=== PATIENT | female | born 1935 | race Caucasian/White ===

== ENCOUNTER → 2024-02-29 | Outpatient (CLI) | payer MEDICARE, SELFPAY ==
--- NOTE | 2024-02-29 09:55 | RAD_ITS ---
INDICATION: Cough EXAMINATION/TECHNIQUE: X-RAY - XR Chest 2 Views COMPARISON: None. FINDINGS: Hyperinflated lungs. Tortuous and calcified thoracic aorta. The heart is mildly enlarged. No pleural effusion or pneumothorax. Degenerative changes of the thoracic spine and shoulders. Multiple age-indeterminate compression deformities of the thoracic spine. RAD/Chest PA and Lateral IMPRESSION: COPD. Multiple age-indeterminate compression deformities of the thoracic spine. Electronically Signed: Anthony Abad MD at 23:39 EDT ,
[2024-02-29 10:22] LABS: Absolute Lymphocyte Count 1.34 X10^3/uL (0.83-4.51); Absolute Neutrophil Count 2.4 X10^3/uL (2.0-7.7); Basophil# 0.03 X10^3/uL; Basophil% 0.7 % (0-1); Eosinophil# 0.15 X10^3/uL; Eosinophils% 3.3 % (0-5); Hematocrit 41.4 % (37-47); Hemoglobin 13.3 g/dL (12.0-15.0); Lymphocyte # 1.34 X10^3/ul (0.83-4.51); Lymphocyte % 29.9 % (19-41); Mean Corp Hgb Conc 32.1 g/dL (32-36); Mean Corpuscular Volume 108.9 fL (81-99); Mean Platelet Vol. 9.9 fl (6.2-12.0); Monocyte# 0.52 X10^3/uL; Monocyte% 11.6 % (0-10); NRBC Flagged by Analyzer 0 % (0-5); Neutrophil # 2.42 X10^3/uL (2.7-7.7); Neutrophil % 54.1 % (47-70); Platelet Count 204 K/mm3 (150-450); RBC Distribution Width CV 14.2 % (11.6-14.6); RBC Distribution Width SD 56.7 fl (35.1-43.9); White Blood Count 4.5 K/mm3 (4.4-11.0)
[2024-02-29 11:13] LABS: ALB/GLOB Ratio 1.1 RATIO (0.9-2.4); AST(SGOT) 17 U/L (15-37); Alanine Aminotransfer ALT/SGPT 16 U/L (13-56); Albumin, Serum 3.5 g/dL (3.2-5.0); Alkaline Phosphatase 68 U/L (45-117); Anion Gap 5 (5-15); BUN 21 mg/dL (7-18); BUN/Creat Ratio 35.6 RATIO (10-20); Calcium,Total 9.5 mg/dL (8.5-10.1); Chloride 109 mmol/L (98-107); Cholesterol 208 mg/dL (200); Creatinine, Serum 0.59 mg/dL (0.55-1.02); EST Glomerular Filtration Rate 102 mL/min (>60); Est Glom Filt Rate - Afr Amer 124 mL/min (>60); Globulin 3.3 g/dL (2.2-4.2); Glucose 97 mg/dL (74-106); High Density Lipoprotein 89 mg/dL; Potassium 3.7 mmol/L (3.5-5.1); Protein, Total 6.8 g/dL (6.4-8.2); Sodium Level 141 mmol/L (136-145); Thyroid Stim Hormone (TSH) 1.17 uIU/mL (0.358-3.74); Triglycerides 98 mg/dL; Very Low Density Lipoprotein 20 mg/dL (5-40)
[2024-02-29 17:20] LABS: Vitamin D,25 Hydroxy 48.6 ng/mL
== END | disposition home or self-care (01) ==
PROVIDERS: PCP Family Medicine; Referring Provider Family Medicine; Visit Provider Family Medicine
DX: R05.8 Other specified cough (principal); M85.80 Other specified disorders of bone density and structure, unspecified site
CPT/HCPCS: 36415; 71046; 80053; 80061; 82306; 84443; 85025

== ENCOUNTER → 2024-05-01 | Outpatient (CLI) | payer MEDICARE, SELFPAY ==
--- NOTE | 2024-05-01 10:35 | RAD_ITS ---
STUDY: X-RAY - RIGHT SHOULDER REASON FOR EXAM: Female, 88 years old. Fall TECHNIQUE: 4 view(s) of the shoulder. COMPARISON: None. FINDINGS: There is severe degenerative arthrosis of the glenohumeral articulation. There is degenerative arthrosis of the acromioclavicular joint without inferior osseous spur formation. Normal acromion. Deformity of the surgical neck of the proximal right humerus suggestive of possible old fracture. The soft tissue structures are unremarkable. Normal visualized pulmonary apex. RAD/Shoulder min 2 Views IMPRESSION: Degenerative changes. No acute fracture or dislocation is seen. Electronically Signed: Iglesia Lobo MD at 11:13 EDT ,
== END | disposition home or self-care (01) ==
PROVIDERS: PCP Family Medicine; Referring Provider Physician Assistant; Visit Provider Physician Assistant
DX: M25.511 Pain in right shoulder (principal); W19.XXXA Unspecified fall, initial encounter
CPT/HCPCS: 73030

== ENCOUNTER → 2024-05-23 | Outpatient (CLI) | payer MEDICARE, SELFPAY ==
--- NOTE | 2024-05-23 12:41 | BD_ITS ---
STUDY: DUAL ENERGY X-RAY ABSORPTIOMETRY / DXA REASON FOR EXAM: Female, 88 years old. [id number] TECHNIQUE: Bone Mineral Density (BMD) measurements of left forearm and bilateral hips were obtained. COMPARISON: None. FINDINGS: Left Femur Total: g/cm2 (0.442) / T-score (-4.1) / Z-score (-1.8) Left Femoral Neck: g/cm2 (0.447) / T-score (-3.6) / Z-score (-1.1) Right Femur Total: g/cm2 (0.372) / T-score (-4.7) / Z-score (-2.3) Right Femoral Neck: g/cm2 (0.356) / T-score (-4.4) / Z-score (-1.9) Left Forearm: g/cm2 (0.292) / T-score (-5.3) BD/Dexa Bone Density Study IMPRESSION: The patient is considered osteoporotic as outlined below according to World [place] Organization (WHO) criteria with a high fracture risk. Reference Information: The T-score is the number of standard deviations above or below the standard which is normal for young adults at their peak bone mineral density. The World Health Organization (WHO) interprets the T-scores as follows: Above -1 Normal bone density Between -1 and -2.5 Osteopenia Equal to / or below -2.5 Osteoporosis As a practical clinical guideline, osteopenia may be graded as follows: Mild -1 through -1.5 Moderate -1.6 through -2.0 Severe -2.1 through -2.4 The Z-score is the number of standard deviations above or below age-matched controls. A Z-score of less than -1.5 would be considered abnormal. References: 1. NIH Osteoporosis and Related Bone Diseases www osteo.org 2. International Society for Clinical Densitometry www iscd.org 3. National Osteoporosis Foundation www nof.org Electronically Signed: Iglesia Lobo MD at 8:22 EDT ,
== END | disposition home or self-care (01) ==
LOC: OPBD 12:37
PROVIDERS: PCP Family Medicine; Referring Provider Family Medicine; Visit Provider Family Medicine
DX: Z78.0 Asymptomatic menopausal state (principal)
CPT/HCPCS: 77080

== ENCOUNTER → 2024-08-28 | Outpatient (CLI) | payer MEDICARE, SELFPAY ==
[2024-08-28 15:28] LABS: Absolute Lymphocyte Count 1.12 X10^3/uL (0.83-4.51); Absolute Neutrophil Count 2.9 X10^3/uL (2.0-7.7); Basophil# 0.03 X10^3/uL; Basophil% 0.6 % (0-1); Eosinophil# 0.14 X10^3/uL; Eosinophils% 2.8 % (0-5); Hematocrit 43.2 % (37-47); Hemoglobin 13.5 g/dL (12.0-15.0); Lymphocyte # 1.12 X10^3/ul (0.83-4.51); Lymphocyte % 22.6 % (19-41); Mean Corp Hgb Conc 31.3 g/dL (32-36); Mean Corpuscular Hgb 36.1 pg (27.0-32.0); Mean Corpuscular Volume 115.5 fL (81-99); Mean Platelet Vol. 9.9 fl (6.2-12.0); Monocyte# 0.75 X10^3/uL; Monocyte% 15.2 % (0-10); NRBC Flagged by Analyzer 0 % (0-5); Neutrophil # 2.89 X10^3/uL (2.7-7.7); Neutrophil % 58.4 % (47-70); POSITIVE MORPHOLOGY YES; Platelet Count 269 K/mm3 (150-450); RBC Distribution Width CV 15.5 % (11.6-14.6); RBC Distribution Width SD 65.9 fl (35.1-43.9); Red Blood Count 3.74 M/mm3 (4.2-5.4)
[2024-08-28 15:50] LABS: Vitamin D,25 Hydroxy 31.8 ng/mL
[2024-08-28 15:54] LABS: Differential Indicated SCAN CRITERIA MET
[2024-08-28 16:05] LABS: ALB/GLOB Ratio 1.2 RATIO (0.9-2.4); AST(SGOT) 20 U/L (15-37); Alanine Aminotransfer ALT/SGPT 17 U/L (13-56); Albumin, Serum 3.6 g/dL (3.2-5.0); Alkaline Phosphatase 100 U/L (45-117); Anion Gap 4 (5-15); BUN 24 mg/dL (7-18); BUN/Creat Ratio 39.3 RATIO (10-20); Calcium,Total 9.2 mg/dL (8.5-10.1); Chloride 112 mmol/L (98-107); Creatinine, Serum 0.61 mg/dL (0.55-1.02); EST Glomerular Filtration Rate 98 mL/min (>60); Est Glom Filt Rate - Afr Amer 119 mL/min (>60); Glucose 111 mg/dL (74-106); Potassium 3.3 mmol/L (3.5-5.1); Protein, Total 6.6 g/dL (6.4-8.2); Sodium Level 145 mmol/L (136-145)
[2024-08-28 16:51] LABS: Anisocytosis 1+
== END | disposition home or self-care (01) ==
LOC: MFPLAB 11:38
PROVIDERS: PCP Family Medicine; Visit Provider Family Medicine
DX: I10 Essential (primary) hypertension (principal); R41.89 Other symptoms and signs involving cognitive functions and awareness
CPT/HCPCS: 36415; 80053; 82306; 84443; 85025

== ENCOUNTER → 2024-09-21 | Outpatient (CLI) | payer MEDICARE, SELFPAY ==
--- NOTE | 2024-09-21 13:47 | VDLE_ITS ---
Reason For Study: Swelling LLE RIGHT LEFT CFV is compressible, spontaneous, phasic, GSV is normal. competent and demonstrates normal CFV is compressible, spontaneous, phasic, augmentation. competent, and demonstrates normal Procedure augmentation. This is a venous duplex using B-mode, color FV is compressible, spontaneous, phasic, flow and spectral Doppler. competent and demonstrates normal Exam performed in department. augmentation. Difficult to visualize Lt calf veins due to POP V is compressible, spontaneous, phasic, swelling. competent and demonstrates normal A preliminary report was called and/or faxed augmentation. to Dr. Hernandez. T/P Trunk is compressible. PTV is compressible. LT PerV is compressible. VL/Venous Duplex US, Unilateral Interpretation Summary Deep veins of the left lower extremity are patent and compressible segmentally. There is no evidence of left lower extremity deep vein thrombosis. Valvular competence appears intac t within the proximal deep venous system on the left . The left great saphenous vein appears patent a nd compressible segmentally. The right common femoral vein is patent and compressible . Ordering Physician: Kalia Hernandez Referring Physician: Kalia Hernandez Performed By: Katy Gonzales, ONELCS, RVT
== END | disposition home or self-care (01) ==
LOC: CVS 13:43
PROVIDERS: PCP Family Medicine; Referring Provider Family Medicine; Visit Provider Family Medicine
DX: R60.0 Localized edema (principal)
CPT/HCPCS: 93971

== ENCOUNTER 2024-10-10 11:14 | Emergency (ER) | payer MEDICARE, SELFPAY ==
[2024-10-10 11:15] VITALS: BP 163/89; PULSE 84; RESP 14; TEMP 36.6; O2SAT 98
[2024-10-10 11:45] VITALS: BMI 26.9
[2024-10-10 12:01] VITALS: O2SAT 96
--- NOTE | 2024-10-10 12:01 | EKG12_ITS ---
Test Reason : Blood Pressure : */* mmHG Vent. Rate : 77 BPM Atrial Rate : 77 BPM P-R Int : 160 ms QRS Dur : 84 ms QT Int : 394 ms P-R-T Axes : -23 58 0 degrees QTcB Int : 445 ms Normal sinus rhythm Normal ECG Confirmed by Lazaro Cuevas ([id number]), editor publications ADEEL WU ([id number]) on 10/11/2024 10:19:29 AM Referred By: BEATRIZ Confirmed By: Lazaro Cuevas
--- NOTE | 2024-10-10 12:02 | ED.VIS.CHEST ---
HPI History of Present Illness Chief Complaint: Chest Other Informant: patient and family (Daughter at bedside.) Onset/Context/Timing Onset: Days and Month(s) Activity at onset: gradual Timing: Continuous Quality: Positive for Aching Location: Right Chest and Left Chest Current Severity: Mild Maximum Severity: Mild Worsened By: Movement of Torso Associated Symptoms: Negative for Nausea, Vomiting, Diaphoresis, Dyspnea, Cough, Fever, Lightheadedness, Acid Reflux or Palpitations Narrative Narrative: 88-year-old female history of anemia, hypertension, scoliosis and sciatica. Patient has 2 separate issues going on. She was slipping out of her bed on the second grab the railing to put herself up and since that time has had bilateral rib cage pain. She never actually fell out of bed or hit the floor. Also the patient had bilateral lower extremity edema for at least 2 months. She has an upcoming scheduled echocardiogram and other testing. She was on Lasix 20 and then 40 mg once a day without any relief. She has now stopped his medications. Her daughter is present at bedside helps with the history because the patient is very hard of hearing. Patient denies shortness of breath. She denies fever or cough. She denies any recent illness. Prior Similar Symptoms: Yes Recent Illness/Hospitalization: No CVD Risk Factors: Positive for Hypertension PE Risk Factors: Negative for Recent Travel/Surgery, Recent Immobilization, Prior DVT or PE, Cancer or OCP + Smoking + >/=35 TAD Risk Factors: Negative for Marfan's Syndrome, Hypertension or Family History PFSH PFS Medical History Contusion of right shoulder Right shoulder strain Anemia Stomach ulcer Hypertension Home Medications ?Medication ?Instructions ?Recorded ?Last Taken ?Type amlodipine 5 mg tablet 5 mg PO QDAY 05/01/24 Unknown History Allergy/AdvReac Type Severity Reaction Status Date / Time Penicillins Allergy Intermediate PT UNSURE Verified 10/10/24 11:15 OF REACTION Family History Grandmother Breast cancer Mother Cancer bone Surgical History Hx of tonsillectomy H/O shoulder replacement H/O: hysterectomy Social History adopted: No household members: family Smoking Status: Never smoker ROS ROS ED ROS Narrative Denies recent illness. Bilateral lower extremity swelling for months. Constitutional Constitutional ED: Denies chills Eyes Eyes: Reports none ENT ENT ED: Denies ear pain, rhinorrhea or sore throat Cardiovascular Cardiovascular: Reports chest pain and other Details: Bilateral rib cage pain after trying to pull herself up in bed by the railings. Respiratory/Chest Respiratory/Chest: Denies cough or dyspnea Gastrointestinal Gastrointestinal: Denies abdominal pain, constipation, diarrhea, melena, nausea or vomiting Genitourinary Genitourinary ED: Denies dysuria or hematuria Musculoskeletal Musculoskeletal: Denies arthralgias Integumentary Denies abscess Neurologic Neurologic: Denies headache(s) Psychiatric Psychiatric: Denies anxiety Endocrine Endocrinology: Denies cold intolerance Hematologic/Lymphatic Hematologic/Lymphatic: Denies easy bleeding Allergic/Immunologic Allergic/Immunologic ED: Denies mouth swelling EXAM Physical Exam Narrative Exam Narrative: 88-year-old female vital signs are stable afebrile. Pulse ox 98% on room air no signs of hypoxia. She does not look septic or toxic. She is in no distress. She is very hard of hearing. Daughter is present in the room. H EENT exam pupils round react light. Moist mucous members. Neck nontender no JVD. No lymphadenopathy. Lungs clear to auscultation bilaterally. Heart regular rhythm rate about 80 no murmur. She does have mild bilateral rib cage tenderness. There is no ecchymosis or bruising. No subcu air or crepitance. No bony deformity. Abdomen is soft and nontender. No peritoneal signs. Pelvic girdle intact. Moving all 4 extremities. She has 1-2+ pitting edema both lower extremities. Equal symmetrical. Calves are nontender. There is no cords. Previously had a noninvasive study that was negative for DVT. Const Vital Signs: 10/10/24 11:15 10/10/24 11:47 10/10/24 12:01 Temperature 98 F Temperature Source Temporal Pulse Rate 84 Respiratory Rate 14 Respiratory Effort Normal Non-Labored Blood Pressure 163/89 H Blood Pressure Mean 113 Pulse Ox 98 96 Oxygen Delivery Method Room Air Room Air 10/10/24 13:06 10/10/24 15:00 10/10/24 15:30 Temperature Temperature Source Pulse Rate 78 89 Respiratory Rate 17 17 Respiratory Effort Blood Pressure 156/86 H Blood Pressure Mean 109 Pulse Ox 97 86 Oxygen Delivery Method Room Air Room Air Positive well nourished and well developed; Negative for cachectic, contractures or unkempt General Appearance ED: well developed and NAD; Negative for unkempt, cachectic, contractures or pallor Nutritional Appearance: Negative for cachectic HEENT Reports moist mucous membranes normocephalic and atraumatic Eyes PERRL and EOMs intact bilaterally Neck no lymphadenopathy, supple and no JVD Chest Wall inspection of chest normal; Negative for palpation of chest normal Chest Narrative: Bilateral rib cage tenderness to palpation. No crepitance or subcu air. No bruising. No bony deformity. Chest: tenderness Resp normal respiratory effort Auscultation: Negative for rales, rhonchi or wheezes Cardio regular rate, regular rhythm, S1 normal heart sound, S2 normal heart sound and no murmurs Peripheral Pulses: pulses 2+ throughout GI normal to inspection, nondistended, normoactive bowel sounds, soft to palpation, non-tender, non-distended and no masses Back/Spine no CVA tenderness and no thoracic nor lumbar tenderness Extremity Negative for normal to inspection Extremity Narrative: Bilateral 1-2+ pitting edema. Equal symmetrical. General Extremety ED: Yes edema General Extremity: edema Neuro oriented x3 and CN's II-XII intact bilaterally Neuro Narrative: Very hard of hearing. Sensorium / Orientation: awake, alert, oriented to person and oriented to place Motor Exam: strength 5/5 throughout Psych mental status grossly normal Appearance: Negative for unkempt Mood & Affect: Negative for depressed, anxious or tearful Skin no rashes or lesions noted and no wounds General Skin Exam: Negative for jaundice or pallor Rashes: No rashes noted Trauma: Negative for abrasion, laceration or puncture MDM MDM MDM Narrative Medical decision making narrative: 88-year-old female has 2-month plus history of lower extremity edema that is unresponsive to Lasix. Second issue is she injured her rib cage bilaterally while pulling herself up to bed. Cardiac workup due to the edema and chest pain thinks reproducible musculoskeletal. Chest x-ray to evaluate for possible rib fracture. Repeat exam patient is resting comfortably at 4:13 PM. Exam unchanged. We went over her test results. Nurses walked the patient in the hallway without any oxygen. Her pulse ox saturations stayed 91 to 92% or higher. She and her daughter are comfortable with her being discharged home. I called the echocardiogram lab was unable to get hold anybody. Daughter will try tomorrow to see if they can move the echocardiogram up. History & Record Review Discussion w/independent historian: Patient and Family Additional record(s) reviewed:: Prior inpatient record, Prior outpatient record, Prior ED visit and Prior labs Lab Data Attestation: I reviewed the patient's lab results. Lab results narrative: CBC unremarkable. White count of 4. H&H 12.9 and 39. Platelets 163. Electrolytes show potassium 3.4. Gap 6. Normal BUN of 20 creatinine 0.56. Glucose 108. Troponin 14. BNP 218. Labs: Laboratory Results - last 24 hr 10/10/24 12:09 WBC 4.3 L RBC 3.60 L Hgb 12.9 Hct 39.6 MCV 110.0 H MCH 35.8 H MCHC 32.6 RDW Std Deviation 57.1 H RDW Coeff of Hawa 13.8 Plt Count 163 MPV 9.6 Immature Gran % (Auto) 0.500 Neut % (Auto) 50.8 Lymph % (Auto) 22.8 Greer % (Auto) 16.5 H Eos % (Auto) 8.7 H Baso % (Auto) 0.7 Absolute Neuts (auto) 2.2 Absolute Lymphs (auto) 0.97 Nucleated RBC % 0 Sodium 142 Potassium 3.4 L Chloride 107 Carbon Dioxide 29.0 Anion Gap 6 BUN 20 H Creatinine 0.56 Estim Creat Clear Calc 45.31 Est GFR (MDRD) Af Amer 131 Est GFR (MDRD) Non-Af 109 BUN/Creatinine Ratio 35.8 H Glucose 108 H Calcium 9.6 Troponin I High Sens 14 B-Natriuretic Peptide 218.3 H Radiography Chest X-Ray - ED: 2 View, Read by ED Physician, Normal, Heart, Lungs, Mediastinum, Bony Structures, No Acute Disease and Chronic Changes Diagnostic Testing: Clinical Impression(s) from Imaging Studies Chest X-Ray 10/10/24 12:25 IMPRESSION: Findings suggestive of a mild degree of vascular congestion and CHF. Electronically Signed: Iglesia Lobo MD at 12:36 EST , Chest x-ray, 2 views, interpreted by myself and the radiologist shows mild vascular congestion. No effusion. No pneumonia. Normal cardiac silhouette. Chronic changes. Rhythm Strip Rhythm Strip: Sinus Rhythm Rate: 77 Ectopy: None EKG Initial EKG: Attestation: I personally reviewed and interpreted this EKG as follows: Interpretation: No Acute Injury Pattern Comments: Normal sinus rhythm rate of 77 no acute signs of CO or ischemia. Discharge Plan Triage Chief Complaint: Chest Other ED Provider: Mike Davison Dx/Rx/DC Orders Clinical Impression: Congestive heart failure, Peripheral edema Instructions: ED Heart Failure, Congestive (CHF) Prescriptions: No Action amlodipine 5 mg tablet 5 mg PO QDAY Primary Care Provider: Kalia Hernandez Referrals: Kalia Hernandez MD [Primary Care Provider] - Activity Restrictions/Additional Instructions: Continue your Lasix daily. Call and follow-up to get your echocardiogram the ultrasound your heart see if there is any way they can move it up to be done sooner than the . Return if feeling worse or if feeling significantly short of breath. Your test today looked good as did your chest x-ray but we need that echocardiogram to be done for additional information. Print Language: Greek Disposition Disposition: Home, Self Care
--- NOTE | 2024-10-10 12:25 | RAD_ITS ---
STUDY: X-RAY CHEST REASON FOR EXAM: Female, 88 years old. Chest pain. TECHNIQUE: AP and lateral views of the chest. COMPARISON: Comparison is made with prior study dated February 29, 2024. FINDINGS: EKG electrodes are seen. Hyperinflation. Blunting of both costophrenic angles posteriorly. Mild degree of vascular congestion. There is mild cardiac enlargement. Normal mediastinum and bay. Normal visualized pulmonary arteries. There is atherosclerotic calcification of the aortic arch with tortuosity. There is demineralization of the osseous structures. There is degenerative osteoarthritis of the bilateral shoulders. Hiatal hernia. RAD/Chest PA and Lateral IMPRESSION: Findings suggestive of a mild degree of vascular congestion and CHF. Electronically Signed: Iglesia Lobo MD at 12:36 EST ,
[2024-10-10 12:36] LABS: Absolute Lymphocyte Count 0.97 X10^3/uL (0.83-4.51); Absolute Neutrophil Count 2.2 X10^3/uL (2.0-7.7); Basophil# 0.03 X10^3/uL; Basophil% 0.7 % (0-1); Eosinophil# 0.37 X10^3/uL; Eosinophils% 8.7 % (0-5); Hematocrit 39.6 % (37-47); Hemoglobin 12.9 g/dL (12.0-15.0); Lymphocyte # 0.97 X10^3/ul (0.83-4.51); Lymphocyte % 22.8 % (19-41); Mean Corp Hgb Conc 32.6 g/dL (32-36); Mean Corpuscular Hgb 35.8 pg (27.0-32.0); Mean Platelet Vol. 9.6 fl (6.2-12.0); Monocyte% 16.5 % (0-10); NRBC Flagged by Analyzer 0 % (0-5); Neutrophil # 2.16 X10^3/uL (2.7-7.7); Neutrophil % 50.8 % (47-70); Platelet Count 163 K/mm3 (150-450); RBC Distribution Width CV 13.8 % (11.6-14.6); RBC Distribution Width SD 57.1 fl (35.1-43.9); White Blood Count 4.3 K/mm3 (4.4-11.0)
[2024-10-10 12:49] LABS: Anion Gap 6 (5-15); BUN 20 mg/dL (7-18); BUN/Creat Ratio 35.8 RATIO (10-20); Calcium,Total 9.6 mg/dL (8.5-10.1); Chloride 107 mmol/L (98-107); Creatinine, Serum 0.56 mg/dL (0.55-1.02); EST Glomerular Filtration Rate 109 mL/min (>60); Est Glom Filt Rate - Afr Amer 131 mL/min (>60); Estimated Creatinine Clearance 45.31 ml/min; Glucose 108 mg/dL (74-106); Potassium 3.4 mmol/L (3.5-5.1); Sodium Level 142 mmol/L (136-145); Troponin-I HS 14 pg/mL (3.0-54.0)
[2024-10-10] MEDS: Morphine 4 MG/ML Syringe IV (13:02)
[2024-10-10] MEDS: Ondansetron 4 MG/2 ML Vial IV (13:02)
[2024-10-10 13:06] VITALS: BP 156/86; PULSE 78; RESP 17
[2024-10-10 14:31] LABS: BNP,B-Type NATRIURETIC PEPTIDE 218.3 pg/mL (0-100)
[2024-10-10 15:00] VITALS: PULSE 89; RESP 17; O2SAT 97
[2024-10-10 15:30] VITALS: O2SAT 86
[2024-10-10 16:40] VITALS: BP 145/78; PULSE 86; RESP 18; TEMP 36.4; O2SAT 92; O2SAT 93
== END 2024-10-10 17:06 | disposition home or self-care (01) ==
PROVIDERS: Emergency Provider Emergency Medicine; PCP Family Medicine; Visit Provider Emergency Medicine
DX: I11.0 Hypertensive heart disease with heart failure (principal); I50.9 Heart failure, unspecified; H91.90 Unspecified hearing loss, unspecified ear; R07.82 Intercostal pain
CPT/HCPCS: 71046; 80048; 83880; 84484; 85025; 93005; 96374; 96375; 99284; A4216; J2405

== ENCOUNTER → 2024-10-23 | Outpatient (CLI) | payer MEDICARE, SELFPAY ==
--- NOTE | 2024-10-23 12:29 | ECHOD_ITS ---
Reason For Study: Ankle Swelling Procedure This was a 2D Doppler, Color Flow transthoracic echocardiogram. Exam performed in department. Left Ventricle Normal LV size. Left ventricular systolic function is normal. Stage 1 diastolic dysfunction. The left ventricular ejection fraction is 65 %. No regional wall motion abnormalities noted. Right Ventricle Normal RV size. Normal systolic function. Atria Normal left atrium. Normal right atrium. Mitral Valve There is mild to moderate mitral annular calcification. Tricuspid Valve Normal tricuspid valve. Mild tricuspid valve insufficiency. Pulmonary artery systolic pressure is 30 mmHg. Aortic Valve Trisinus/trileaflet aortic valve. Pulmonic Valve Normal pulmonic valve. Great Vessels Normal aortic root. The pulmonary artery is normal size. Inferior vena cava collapse with respiration. Pericardium/Pleural No pericardial effusion. MMode/2D Measurements & Calculations LVIDd: 4.3 cm IVSd: 1.2 cm Ao root diam: 3.6 cm LVIDs: 2.7 cm LVPWd: 0.89 cm RVDd: 3.7 cm FS: 37.9 % LAV(MOD-bp): 74.5 ml LVAd ap4: 24.2 cm2 SV(MOD-sp4): 44.4 ml LAV(MOD-bp) Indexed: 44.0 ml/m2 LVLd ap4: 6.6 cm SI(MOD-sp4): 26.2 ml/m2 LAV(MOD-sp2): 60.7 ml EDV(MOD-sp4): 71.6 ml LAV(MOD-sp4): 75.8 ml EDV(sp4-el): 74.9 ml LVAs ap4: 13.6 cm2 LVLs ap4: 6.2 cm ESV(MOD-sp4): 27.3 ml ESV(sp4-el): 25.4 ml EF(MOD-sp4): 61.9 % EF(sp4-el): 66.2 % SV(sp4-el): 49.6 ml LA A4 area: 21.5 cm2 LA dimension(2D): 3.7 cm RA A4 area: 20.0 cm2 TAPSE: 1.9 cm Time Measurements MV dec time: 0.26 sec Doppler Measurements & Calculations MV E max waldo: 63.4 cm/sec Lat Peak E' Waldo: 10.3 cm/sec Med Peak E' Waldo: 3.2 cm/sec MV A max waldo: 91.1 cm/sec E/E' lat: 6.2 E/E' med: 19.8 MV E/A: 0.70 MV V2 max: 113.4 cm/sec MV P1/2t max waldo: 82.1 cm/sec Ao V2 max: 99.7 cm/sec MV max P.1 mmHg MV P1/2t: 80.1 msec Ao max P.0 mmHg MV V2 mean: 57.4 cm/sec MV mean P.6 mmHg MV dec slope: 300.3 cm/sec2 MV V2 VTI: 22.3 cm MVA(P1/2t): 2.7 cm2 LV V1 max: 84.1 cm/sec PA V2 max: 102.1 cm/sec TR max waldo: 344.0 cm/sec LV V1 max P.8 mmHg TR max P.8 mmHg LV V1 mean P.3 mmHg LV V1 mean: 51.9 cm/sec LV V1 VTI: 17.9 cm ECHO/Echo Complete Interpretation Summary Normal LV size. Left ventricular systolic function is normal. Stage 1 diastolic dysfunction. The left ventricular ejection fraction is 65 %. Pulmonary artery systolic pressure is 30 mmHg. Ordering Physician: Kalia Hernandez Referring Physician: Kalia Hernandez Performed By: Mehrdad Sandoval RCS
--- NOTE | 2024-10-23 12:31 | ART_ITS ---
Reason For Study: Weak Pulse BLE Procedure A bilateral lower extremity continuous wave Doppler with analog waveform analysis and ankle brachial indexes. Left Segmental Pressures Left brachial= 171mmHg. Left posterior tibial artery = 176mmHg. Left dorsalis pedis artery = 150mmHg. The left posterior tibial artery waveforms are triphasic. The left dorsalis pedis waveforms are triphasic. Right Segmental Pressures Right brachial= 165mmHg. Right posterior tibial artery = 187mmHg. Right dorsalis pedis artery = 142mmHg. The right posterior tibial artery waveforms are triphasic. The right dorsalis pedis waveforms are triphasic. Indices The right ankle brachial index by the posterior tibial artery is 1.09. The right ankle brachial index by the dorsalis pedis is 0.83. The left ankle brachial index by the posterior tibial artery is 1.03. The left ankle brachial index by the dorsalis pedis is 0.88. VL/Ankle Brachial Index Interpretation Summary Right DIPAK 1.09, normal. Doppler/PVR waveforms of the right ankle normal at rest . Left DIPAK 1.03, normal. Doppler/PVR waveforms of the left ankle normal at rest. Ordering Physician: Kalia Hernandez Referring Physician: KALIA HERNANDEZ MD Performed By: Rey Andrew RVT
== END | disposition home or self-care (01) ==
PROVIDERS: PCP Family Medicine; Referring Provider Family Medicine; Visit Provider Family Medicine
DX: M25.473 Effusion, unspecified ankle (principal); R60.0 Localized edema; R09.89 Other specified symptoms and signs involving the circulatory and respiratory systems
CPT/HCPCS: 93306; 93922

== ENCOUNTER → 2025-03-05 | Outpatient (CLI) | payer MEDICARE, SELFPAY ==
[2025-03-05 17:46] LABS: Absolute Lymphocyte Count 1.47 X10^3/uL (0.83-4.51); Absolute Neutrophil Count 2.6 X10^3/uL (2.0-7.7); Basophil# 0.04 X10^3/uL; Basophil% 0.8 % (0-1); Eosinophil# 0.19 X10^3/uL; Eosinophils% 3.8 % (0-5); Hematocrit 41.9 % (37-47); Hemoglobin 13.8 g/dL (12.0-15.0); Lymphocyte # 1.47 X10^3/ul (0.83-4.51); Lymphocyte % 29.6 % (19-41); Mean Corp Hgb Conc 32.9 g/dL (32-36); Mean Corpuscular Hgb 35.3 pg (27.0-32.0); Mean Corpuscular Volume 107.2 fL (81-99); Mean Platelet Vol. 10.2 fl (6.2-12.0); Monocyte# 0.62 X10^3/uL; Monocyte% 12.5 % (0-10); NRBC Flagged by Analyzer 0 % (0-5); Neutrophil # 2.62 X10^3/uL (2.7-7.7); Neutrophil % 52.9 % (47-70); Platelet Count 169 K/mm3 (150-450); RBC Distribution Width CV 14.6 % (11.6-14.6); RBC Distribution Width SD 57.6 fl (35.1-43.9); Red Blood Count 3.91 M/mm3 (4.2-5.4)
[2025-03-05 18:08] LABS: Vitamin D,25 Hydroxy 51.3 ng/mL (30-100)
[2025-03-05 18:21] LABS: ALB/GLOB Ratio 1.7 RATIO (0.9-2.4); AST(SGOT) 17 U/L (<=31); Alanine Aminotransfer ALT/SGPT 10 U/L (<=34); Albumin, Serum 4.1 g/dL (3.4-4.8); Alkaline Phosphatase 82 U/L (35-104); Anion Gap 11 (5-15); BUN 27 mg/dL (4-19); BUN/Creat Ratio 40.4 RATIO (10-20); Calcium,Total 9.7 mg/dL (7.6-11.0); Carbon Dioxide 25.7 mmol/L (21.0-32.0); Chloride 105 mmol/L (98-108); Creatinine, Serum 0.66 mg/dL (0.70-1.20); EST Glomerular Filtration Rate 84 (>60); Globulin 2.4 g/dL (2.2-4.2); Glucose 102 mg/dL (70-99); Potassium 3.9 mmol/L (3.3-5.1); Protein, Total 6.6 g/dL (5.9-8.4); Sodium Level 142 mmol/L (133-145); Total Bilirubin 0.42 mg/dL (0.00-1.30)
== END | disposition home or self-care (01) ==
LOC: MFPLAB 16:50
PROVIDERS: PCP Family Medicine; Referring Provider Family Medicine; Visit Provider Family Medicine
DX: R42 Dizziness and giddiness (principal)
CPT/HCPCS: 36415; 80053; 82306; 84443; 85025

== ENCOUNTER → 2025-06-11 | Outpatient (CLI) | payer MEDICARE, SELFPAY ==
--- OUTSIDE RECORDS SUMMARY | 2025-06-11 20:25 | XMS RPT_ITS | CCD ---
Author Organization [facility] Care Team Providers Care Validation Specialist Name Role Phone Fitz KHALIL, Kalia Primary Care Provider Fitz KHALIL, Kalia Attending Provider Fitz KHALIL, Kalia Referring Provider [phone] Molly KHALIL, Dr. Fierro Attending Provider [phone] Meseret KHALIL, Dr. Joseph Attending Provider [phone] Meseret, [place] Attending Unavailable Fitz, Chalon Primary Care Unavailable Meseret, Jake Referring Unavailable Meseret, [place] Attending Unavailable Fitz, Chalon Primary Care Unavailable Fitz, Chalon Attending Unavailable Fitz, Chalon Referring Unavailable Fitz, Chalon Primary Care Unavailable Fitz, Chalon Primary Care Unavailable Fitz, Chalon Attending Unavailable Fitz, Chalon Referring Unavailable Fitz, Chalon Primary Care Unavailable Fitz, Chalon Attending Unavailable Fitz, Chalon Referring Unavailable Fitz, Chalon Primary Care Unavailable Fitz, Chalon Attending Unavailable Fitz, Chalon Primary Care Unavailable Mike Davison Attending Unavailable Fitz, Chalon Primary Care Unavailable Yael Boo Attending Unavailable Fitz, Chalon Referring Unavailable Meseret, [place] Attending Unavailable Fitz, Chalon Referring Unavailable Fitz, Chalon Primary Care Unavailable Fitz, Chalon Primary Care Unavailable Binu Castellano Attending Unavailable Fitz, Chalon Referring Unavailable Fitz, Chalon Primary Care Unavailable Meseret, [place] Attending Unavailable Fitz, Chalon Primary Care Unavailable Yessy Rose Attending Unavailable Fitz, Chalon Referring Unavailable Allergies Allergy Classification Reported Allergen(s) Allergy Type Date of Onset Reaction(s) Facility (2 sources) Penicillins Allergy to substance 5 PT UNSURE OF REACTION [facility] (1 source) Penicillins Drug allergy (disorder) [facility] Repository Medications Current Medications Medication Drug Class(es) Dates Sig (Normalized) Sig (Original) amLODIPine 2.5 mg oral tablet (3 sources) Dihydropyridine Calcium Channel Jarod Start: 04-22-2025 take 1 tablet by mouth once daily Amlodipine 2.5 mg tablet Active 2.5 mg PO daily April 22, 2025 12:00am Start: 05-01-2024 End: 04-22-2025 take 1 tablet by mouth once daily Amlodipine 5 mg tablet Discontinued 5 mg PO daily May 01, 2024 12:00am April 22, 2025 9:35am Vibegron (Gemtesa) 75 mg tablet (1 source) Start: 04-22-2025 take 1 tablet by mouth once daily Vibegron (Gemtesa) 75 mg tablet Active 75 mg PO daily April 22, 2025 12:00am Completed/Discontinued Medications Medication Drug Class(es) Dates Sig (Normalized) Sig (Original) alendronic acid 70 mg oral tablet (1 source) Bisphosphonate Start: 04-22-2025 End: 05-08-2025 take 1 tablet by mouth every week Alendronate 70 mg tablet Discontinued 70 mg PO EVERY WEEK April 22, 2025 12:00am May 08, 2025 11:26am DULoxetine 20 mg delayed release oral capsule (1 source) Serotonin and Norepinephrine Reuptake Inhibitor Start: 04-22-2025 End: 05-08-2025 take 1 capsule by mouth once daily Duloxetine 20 mg capsule,delayed release(DR/EC) Discontinued 20 mg PO daily April 22, 2025 12:00am May 08, 2025 11:26am furosemide 20 mg oral tablet (1 source) Loop Diuretic Start: 04-22-2025 End: 05-08-2025 take 1 tablet by mouth once daily Furosemide (Lasix) 20 mg tablet Discontinued 20 mg PO daily April 22, 2025 12:00am May 08, 2025 11:26am omeprazole 10 mg delayed release oral capsule (1 source) Proton Pump Inhibitor Start: 04-22-2025 End: 05-08-2025 take 1 capsule by mouth once daily Omeprazole 10 mg capsule,delayed release(DR/EC) Discontinued 10 mg PO daily April 22, 2025 12:00am May 08, 2025 11:26am predniSONE 20 mg oral tablet (2 sources) Start: 05-01-2024 End: 10-10-2024 take 1 tablet by mouth twice daily Prednisone 20 mg tablet Discontinued 20 mg PO TWICE A DAY 10 May 01, 2024 12:00am October 10, 2024 12:43pm traMADol hydrochloride 50 mg oral tablet (2 sources) Opioid Agonist Start: 05-01-2024 End: 10-10-2024 take 1 tablet by mouth once daily as needed Tramadol 50 mg tablet Discontinued 50 mg PO daily as needed May 01, 2024 12:00am October 10, 2024 12:44pm Problems Active Problems Problem Classification Problem Date Documented Date Episodic/Chronic Conditions associated with dizziness or vertigo (3 sources) Dizziness; Translations: [Dizziness and giddiness] Onset: 04-22-2025 Episodic Congestive heart failure; nonhypertensive (2 sources) Congestive heart failure; Translations: [Heart failure, unspecified] 10-18-2024 Chronic Deficiency and other anemia (1 source) Anemia; Translations: [Anemia, unspecified] 04-22-2025 Episodic Esophageal disorders (1 source) Gastroesophageal reflux disease; Translations: [Gastro-esophageal reflux disease without esophagitis] 04-22-2025 Chronic Essential hypertension (2 sources) Hypertensive disorder; Translations: [Essential (primary) hypertension] Onset: 04-22-2025 Chronic Fluid and electrolyte disorders (1 source) Hypokalemia; Translations: [Hypokalemia] 04-22-2025 Episodic Intracranial injury (1 source) History of concussion injury of brain; Translations: [Personal history of traumatic brain injury] 04-22-2025 Episodic Mood disorders (1 source) Depressive disorder; Translations: [Depression] 04-22-2025 Chronic Nonspecific chest pain (1 source) Other chest pain; Translations: [Other chest pain] Onset: Episodic Osteoporosis (2 sources) Osteoporosis; Translations: [Age-related osteoporosis without current pathological fracture] 08-03-2024 Chronic Other acquired deformities (2 sources) Scoliosis deformity of spine; Translations: [Scoliosis, unspecified] 08-03-2024 Chronic Other circulatory disease (1 source) Orthostatic hypotension; Translations: [Orthostatic hypotension] 04-22-2025 Episodic Other hereditary and degenerative nervous system conditions (1 source) Restless legs; Translations: [Restless legs syndrome] 04-22-2025 Chronic Other nervous system disorders (1 source) Other symptoms and signs involving cognitive functions and awareness; Translations: [Cognitive change] 04-22-2025 Episodic Other screening for suspected conditions (not mental disorders or infectious disease) (2 sources) Electrocardiogram abnormal; Translations: [Abnormal electrocardiogram [ECG] [EKG]] Onset: 04-22-2025 Episodic Residual codes; unclassified (2 sources) Peripheral edema; Translations: [Localized edema] 10-18-2024 Episodic Residual codes; unclassified (1 source) Insomnia; Translations: [Insomnia, unspecified] 04-22-2025 Episodic Residual codes; unclassified (1 source) Edema; Translations: [Edema, unspecified] 04-22-2025 Episodic Spondylosis; intervertebral disc disorders; other back problems (4 sources) Lumbar radiculopathy; Translations: [Radiculopathy, lumbar region] 08-03-2024 Episodic Sprains and strains (2 sources) Shoulder strain; Translations: [Strain of unspecified muscle, fascia and tendon at shoulder and upper arm level, right arm, initial encounter] 05-01-2024 Episodic Superficial injury; contusion (2 sources) Contusion of right shoulder; Translations: [Contusion of right shoulder, initial encounter] 05-01-2024 Episodic Unclassified (1 source) Low back pain, unspecified; Translations: [Low back pain, unspecified] Onset: Past or Other Problems Problem Classification Problem Date Documented Da te Episodic/Chronic Other non-traumatic joint disorders (1 source) Effusion, unspecified ankle; Translations: [Effusion, unspecified ankle] Onset: 11-11-2024 Episodic Residual codes; unclassified (1 source) Localized edema; Translations: [Localized edema] Onset: 10-25-2024 Episodic Results Test Name Value Interpretation Reference Range Facility Cardiology Visit Reporton Cardiology Visit Report [facility] [address] [place] [address] OFFICE VISIT Date of Service: 05/08/25 MR#: [id number] Acct: [id number] Name: RADHA WARNER #: [id number] : 1935 Provider: Dr. Jake Carl MD Age/Sex: 89/F Location: [facility] Status: Signed HPI HPI History of Present Illness Details: Pleasant nearly 89-year-old lady with a history of hypertension who complains of dizziness and vertigo as well as hot flashes and has had some falls. She apparently saw you in the office and adjustments were made to her blood pressure medication. She had had an echocardiogram performed in October of this year which demonstrated ejection fraction of 65% with mild to moderate mitral and calcification. At that time she had presented to the emergency room when she had presented with lower extremity edema unresponsive to Lasix. She had been on amlodipine at that time. The dosage was reduced and it appears that this has improved. She unfortunately continues to have these dizzy spells but no carlos syncopal episodes. She was asked to see us for further evaluation and management. An EKG done in your office demonstrated sinus rhythm with a rate of 77 bpm and no acute changes. She continues to complain of these hot flashes which she says she has had for at least 3 months. Blood work that has been done has been unremarkable including a TSH of 1.17. On her visit today in the office her physical exam is unremarkable her electrocardiogram here demonstrates sinus rhythm with a rate of 68 bpm and poor R wave progression. Intake Vital Signs 10/10/24 11:15 05/08/25 11:14 Height 5 ft 3 in 5 ft 3 in Weight: 136 lb BMI 24.0 BP 152/83 H Blood Pressure Location Lt brachial Position Sitting Respiration 16 Pulse 66 Pulse Source Monitor Intake Visit Reasons: ABN EKG ([facility]) Communication Equipment Mechanic Required: No Accompanied by: Daughter Is patient in pain?: No Allergies Penicillins Allergy (Intermediate, Verified 05/08/25 11:26) PT UNSURE OF REACTION Medications ???Medication ???Instructions ???Recorded ???Confirmed ???Type amlodipine 2.5 mg tablet 2.5 mg PO QDAY 04/22/25 05/08/25 H istory vibegron 75 mg tablet (Gemtesa) 75 mg PO QDAY 04/22/25 05/08/25 Hi story Have you fallen in the past year?: Yes PFSH Medical History Hypokalemia Depression RLS (restless legs syndrome) Insomnia Orthostatic hypotension GERD (gastroesophageal reflux disease) Cognitive change Edema Hx of concussion Dizziness Abnormal EKG Osteoporosis Scoliosis Anemia Hypertension Surgical History Hx of tonsillectomy H/O shoulder replacement H/O: hysterectomy Family History Grandmother Breast cancer Mother Cancer bone Social History adopted: No household members: family Smoking Status: Never smoker alcohol intake: never substance use type: does not use ROS Const Const: Positive for frequent falls; Negative for fatigue, weakness, headache(s), daytime sleepiness or difficulty sleeping ENT ENT: Positive for dizziness; Negative for headache(s) or Nosebleed/epistaxis Cardio Chest Pain: Yes Frequency: other (comes and goes) Character: other (twinges) Location: other (left shoulder blade) Duration: brief Palpitations: Yes Edema: Bilateral (BLE trace at times ) Resp Respiratory: Negative for SOB with activity, SOB at rest, SOB orthopnea SOB lying down or Cough GI GI: Negative nausea, vomiting or heartburn Neuro Neuro: Positive for dizziness, frequent falls and vertigo; Negative for lightheadedness, near syncope, headache(s) or weakness Endo Endo: Negative for fatigue Cardiology Exam Const Appearance: cooperative, healthy appearing, no acute distress, well developed and well groomed Nutritional Appearance: average body habitus and well nourished Orientation: alert, awake and oriented x3 Head Head: normal to inspection, normocephalic and atraumatic Ears: hearing grossly normal bilaterally and external ears normal Nose: external nose normal, nares normal, nasal mucous membranes and turbinates normal, septum normal and no nasal discharge Face and Sinus: face symmetric Mouth: oral mucosae normal, tongue normal, oropharynx normal and moist mucous membranes Teeth and gingiva: dentition normal Throat: posterior oropharynx normal, tonsils normal and uvula midline Eyes General: appearance normal, both eyes and all related structures Eyelids: eyelids normal Conjunctivae: conjunctivae normal Pupils: PERRL, normal by confrontation and accommodation normal EOM: EOM intact bilater (more content not included)... Normal [facility] Absolute lymphocyte countOrd ered By: Kalia Fitz on 03-05-2025 Lymphocytes Auto (Unsp spec) [#/Vol] 1.47 10*3/uL 0.83-4.51 [facility] Absolute neutrophil countOrd ered By: [facility] on 03-05-2025 Neutrophils (Bld) [#/Vol] 2.6 10*3/uL 2.0-7.7 [facility] Anion gap in Serum or Plasma Ordered By: Kalia Byrnes on 03-05-2025 Anion gap [Moles/Vol] 11 mmol/L 5-15 [facility] Automated lymphocyte count a s percentage of total leukocytesOrdered By: Kalia Byrnes on 03-05-2025 Lymphocytes/100 WBC Auto (Unsp spec) 29.6 % 19-41 [facility] BUN/creatinine ratioOrdered By: Kalia Fitz on 03-05-2025 Urea nitrogen/Creatinine [Mass ratio] 40.4 mg/mg High 10-20 [facility] Basophil percentageOrdered B y: Kalia Byrnes on 03-05-2025 Basophils/100 WBC (Bld) 0.8 % 0-1 [facility] Bilirubin, totalOrdered By: Kalia Byrnes on 03-05-2025 Bilirubin [Mass/Vol] 0.42 mg/dL 0.00-1.30 [facility] CBC W/Diff, Automatedon Absolute Lymph 1.47 X10 3/uL Normal 0.83-4.51 [facility] Comment on above: Performed By: #### L 100.0100, L501.9520, L506.1001, L500.4050 #### [facility] [address] [place], [place], [id number] Absolute Neut 2.6 X10 3/uL Normal 2.0-7.7 [facility] Comment on above: Performed By: #### L 100.0100, L501.9520, L506.1001, L500.4050 #### [facility] [address] [place], [address] Basophils/100 WBC (Bld) 0.8 % Normal 0-1 [facility] Comment on above: Performed By: #### L 100.0100, L501.9520, L506.1001, L500.4050 #### [facility] [address] [place], [address] Eosinophils/100 WBC (Bld) 3.8 % Normal 0-5 [facility] Comment on above: Performed By: #### L 100.0100, L501.9520, L506.1001, L500.4050 #### [facility] [address] [place], [address] Erythrocyte distribution width (RBC) [Ratio] 14.6 % Normal 11.6-14.6 [facility] Comment on above: Performed By: #### L 100.0100, L501.9520, L506.1001, L500.4050 #### [facility] [address] [place], [address] Hematocrit (Bld) [Volume fraction] 41.9 % Normal 37-47 [facility] Comment on above: Performed By: #### L 100.0100, L501.9520, L506.1001, L500.4050 #### [facility] [address] [place], [address] Hemoglobin (Bld) [Mass/Vol] 13.8 g/dL Normal 12.0-15.0 [facility] Comment on above: Performed By: #### L 100.0100, L501.9520, L506.1001, L500.4050 #### [facility] [address] [place], [address] IG% 0.400 Normal 0.0-0.9 [facility] Comment on above: Result Comment: IG% - Immature Granulocytes (promyelocytes, myelocytes and metamyelocytes) > 1% indicates that a LEFT SHIFT is Present. Performed By: #### L 100.0100, L501.9520, L506.1001, L500.4050 #### [facility] [address] [place], [address] Lymphocytes/100 WBC (Bld) 29.6 % Normal 19-41 [facility] Comment on above: Performed By: #### L 100.0100, L501.9520, L506.1001, L500.4050 #### [facility] [address] [place], [address] MCH (RBC) [Entitic mass] 35.3 pg High 27.0-32.0 [facility] Comment on above: Performed By: #### L 100.0100, L501.9520, L506.1001, L500.4050 #### [facility] [address] [place], [address] MCHC (RBC) [Mass/Vol] 32.9 g/dL Normal 32-36 [facility] Comment on above: Performed By: #### L 100.0100, L501.9520, L506.1001, L500.4050 #### [facility] [address] [place], [address] MCV (RBC) [Entitic vol] 107.2 fL High 81-99 [facility] Comment on above: Performed By: #### L 100.0100, L501.9520, L506.1001, L500.4050 #### [facility] [address] [place], [address] Monocytes/100 WBC (Bld) 12.5 % High 0-10 [facility] Comment on above: Performed By: #### L 100.0100, L501.9520, L506.1001, L500.4050 #### [facility] [address] [place], [address] Neutrophils/100 WBC (Bld) 52.9 % Normal 47-70 [facility] Comment on above: Performed By: #### L 100.0100, L501.9520, L506.1001, L500.4050 #### [facility] [address] [place], [address] Nucleated RBC (Bld) [#/Vol] 0 10*3/uL Normal 0-5 [facility] Comment on above: Performed By: #### L 100.0100, L501.9520, L506.1001, L500.4050 #### [facility] [address] [place], [address] Platelet mean volume (Bld) [Entitic vol] 10.2 fL Normal 6.2-12.0 [facility] Comment on above: Performed By: #### L 100.0100, L501.9520, L506.1001, L500.4050 #### [facility] [address] [place], [address] Platelets (Bld) [#/Vol] 169 10*3/uL Normal 150-450 [facility] Comment on above: Performed By: #### L 100.0100, L501.9520, L506.1001, L500.4050 #### [facility] [address] [place], [address] RBC (Bld) [#/Vol] 3.91 10*6/uL Low 4.2-5.4 [facility] Comment on above: Performed By: #### L 100.0100, L501.9520, L506.1001, L500.4050 #### [facility] [address] [place], [address] RDW SD 57.6 fl High 35.1-43.9 [facility] Comment on above: Performed By: #### L 100.0100, L501.9520, L506.1001, L500.4050 #### [facility] [address] [place], [address] WBC (Bld) [#/Vol] 5.0 10*3/uL Normal 4.4-11.0 [facility] Comment on above: Performed By: #### L 100.0100, L501.9520, L506.1001, L500.4050 #### [facility] [address] [place], [address] Carbon dioxide, total [Moles /volume] in Central venous bloodOrdered By: Kalia Byrens on 03-05-2025 CO2 [Moles/Vol] 25.7 mmol/L 21.0-32.0 [facility] Chloride assayOrdered By: Venita Byrnes on 03-05-2025 Chloride [Moles/Vol] 105 mmol/L 98-108 [facility] Comprehensive Metabolic Prof ilon 03-05-2025 Albumin [Mass/Vol] 4.1 g/dL Normal 3.4-4.8 [facility] Comment on above: Performed By: #### L 100.0100, L501.9520, L506.1001, L500.4050 #### [facility] [address] [place], [address] Albumin/Globulin [Mass ratio] 1.7 {ratio} Normal 0.9-2.4 [facility] Comment on above: Performed By: #### L 100.0100, L501.9520, L506.1001, L500.4050 #### [facility] [address] [place], [address] ALK PHOS 82 U/L Normal 35-104 [facility] Comment on above: Performed By: #### L 100.0100, L501.9520, L506.1001, L500.4050 #### [facility] [address] [place], [address] ALT [Catalytic activity/Vol] 10 U/L Normal <=34 [facility] Comment on above: Performed By: #### L 100.0100, L501.9520, L506.1001, L500.4050 #### [facility] [address] [place], [address] AST [Catalytic activity/Vol] 17 U/L Normal <=31 [facility] Comment on above: Performed By: #### L 100.0100, L501.9520, L506.1001, L500.4050 #### [facility] [address] [place], [address] Bilirubin [Mass/Vol] 0.42 mg/dL Normal 0.00-1.30 [facility] Comment on above: Performed By: #### L 100.0100, L501.9520, L506.1001, L500.4050 #### [facility] [address] [place], [address] BUN/CRE 40.4 RATIO High 10-20 [facility] Comment on above: Performed By: #### L 100.0100, L501.9520, L506.1001, L500.4050 #### [facility] [address] [place], [address] Calcium [Mass/Vol] 9.7 mg/dL Normal 7.6-11.0 [facility] Comment on above: Performed By: #### L 100.0100, L501.9520, L506.1001, L500.4050 #### [facility] [address] [place], [address] Chloride [Moles/Vol] 105 mmol/L Normal 98-108 [facility] Comment on above: Performed By: #### L 100.0100, L501.9520, L506.1001, L500.4050 #### [facility] [address] [place], [address] CO2 [Moles/Vol] 25.7 mmol/L Normal 21.0-32.0 [facility] Comment on above: Performed By: #### L 100.0100, L501.9520, L506.1001, L500.4050 #### [facility] [address] [place], [address] Creatinine [Mass/Vol] 0.66 mg/dL Low 0.70-1.20 [facility] Comment on above: Performed By: #### L 100.0100, L501.9520, L506.1001, L500.4050 #### [facility] [address] [place], [address] GAP 11 Normal 5-15 [facility] Comment on above: Performed By: #### L 100.0100, L501.9520, L506.1001, L500.4050 #### [facility] [address] [place], [address] GFR/1.73 sq M.predicted among non-blacks MDRD (S/P/Bld) [Vol rate/Area] 84 mL/min/{1.73_m2} Normal >60 [facility] Comment on above: Result Comment: mL/m in/1.73m2 CKD-EPI Creatinine Equation (2020) Performed By: #### L 100.0100, L501.9520, L506.1001, L500.4050 #### [facility] [address] [place], [address] Globulin (S) [Mass/Vol] 2.4 g/dL Normal 2.2-4.2 [facility] Comment on above: Performed By: #### L 100.0100, L501.9520, L506.1001, L500.4050 #### [facility] [address] [place], [address] Glucose [Mass/Vol] 102 mg/dL High 70-99 [facility] Comment on above: Performed By: #### L 100.0100, L501.9520, L506.1001, L500.4050 #### [facility] [address] [place], [address] Potassium [Moles/Vol] 3.9 mmol/L Normal 3.3-5.1 [facility] Comment on above: Performed By: #### L 100.0100, L501.9520, L506.1001, L500.4050 #### [facility] [address] [place], [address] Sodium [Moles/Vol] 142 mmol/L Normal 133-145 [facility] Comment on above: Performed By: #### L 100.0100, L501.9520, L506.1001, L500.4050 #### [facility] [address] [place], [address] T PROT 6.6 g/dL Normal 5.9-8.4 [facility] Comment on above: Performed By: #### L 100.0100, L501.9520, L506.1001, L500.4050 #### [facility] [address] [place], [address] Urea nitrogen [Mass/Vol] 27 mg/dL High 4-19 [facility] Comment on above: Performed By: #### L 100.0100, L501.9520, L506.1001, L500.4050 #### [facility] [address] [place], [address] Eosinophil percentageOrdered By: Kalia Byrnes on 03-05-2025 Eosinophils/100 WBC (Bld) 3.8 % 0-5 [facility] Erythrocyte distribution wid th ratioOrdered By: Kalia Byrnes on 03-05-2025 Erythrocyte distribution width (RBC) [Ratio] 14.6 % 11.6-14.6 [facility] Erythrocyte distribution wid th standard deviationOrdered By: Kalia Byrnes on 03-05-2025 Erythrocyte distribution width (RBC) [Ratio] 57.6 fl High 35.1-43.9 [facility] Glomerular filtration rate ( GFR) estimation/1.73 sq m using serum, plasma, or whole bOrdered By: Kalia Byrnes on 03-05-2025 GFR/1.73 sq M.predicted among non-blacks MDRD (S/P/Bld) [Vol rate/Area] 84 mL/min/{1.73_m2} >60 [facility] Comment on above: mL/min/1.73m2 CKD-EP I Creatinine Equation (2020) Hematocrit Auto (Bld) [Volum e fraction]Ordered By: Kalia Byrnes on 03-05-2025 Hematocrit (Bld) [Volume fraction] 41.9 % 37-47 [facility] Hemoglobin measurementOrdere d By: Kalia Byrnes on 03-05-2025 Hemoglobin (Bld) [Mass/Vol] 13.8 g/dL 12.0-15.0 [facility] Immature granulocytes/100 WB C Auto (Bld)Ordered By: Kalia Byrnes on 03-05-2025 Immature granulocytes/100 WBC (Bld) 0.400 % 0.0-0.9 [facility] Comment on above: IG% - Immature Granu locytes (promyelocytes, myelocytes and metamyelocytes) > 1% indicates that a LEFT SHIFT is Present. Laboratory - Chemistry and C hemistry - challengeOrdered By: Kalia Byrnes on 03-05-2025 AST [Catalytic activity/Vol] 17 U/L <32 [facility] MCV (mean corpuscular volume ) determinationOrdered By: Kalia Byrnes on 03-05-2025 MCV (RBC) [Entitic vol] 107.2 fL High 81-99 [facility] Mean corpuscular hemoglobin (MCH) determinationOrdered By: Kalia Byrnes on 03-05-2025 MCH (RBC) [Entitic mass] 35.3 pg High 27.0-32.0 [facility] Mean corpuscular hemoglobin concentration (MCHC) determinationOrdered By: Kalia Byrnes on 03-05-2025 MCHC (RBC) [Mass/Vol] 32.9 g/dL 32-36 [facility] Mean platelet volume determi nationOrdered By: Kalia Byrnes on 03-05-2025 Platelet mean volume (Bld) [Entitic vol] 10.2 fL 6.2-12.0 [facility] Monocyte percentageOrdered B y: Kalia Byrnes on 03-05-2025 Monocytes/100 WBC (Bld) 12.5 % High 0-10 [facility] Neutrophil percentageOrdered By: Kalia Byrnes on 03-05-2025 Neutrophils/100 WBC (Bld) 52.9 % 47-70 [facility] Nucleated red blood cell per centageOrdered By: Kalia Byrnes on 03-05-2025 Nucleated RBC/100 WBC (Bld) [Ratio] 0 % 0-5 [facility] Platelet countOrdered By: Venita Byrnes on 03-05-2025 Platelets (Bld) [#/Vol] 169 10*3/uL 150-450 [facility] Potassium measurement (mass/ volume)Ordered By: Kalia Byrnes on 03-05-2025 Potassium (Unsp spec) [Mass/Vol] 3.9 mmol/L 3.3-5.1 [facility] RBC Auto (Bld) [#/Vol]Ordere d By: Kalia Byrnes on 03-05-2025 RBC (Bld) [#/Vol] 3.91 10*6/uL Low 4.2-5.4 [facility] Serum creatinine measurement (mass/volume)Ordered By: Kalia Byrnes on 03-05-2025 Creatinine [Mass/Vol] 0.66 mg/dL Low 0.70-1.20 [facility] Serum globulin measurementOr dered By: Kalia Byrnes on 03-05-2025 Globulin (S) [Mass/Vol] 2.4 g/dL 2.2-4.2 [facility] Serum glucose measurement (m ass/volume)Ordered By: Kalia Byrnes on 03-05-2025 Glucose [Mass/Vol] 102 mg/dL High 70-99 [facility] Serum or plasma alanine anderson otransferase (ALT) measurementOrdered By: Kalia Byrnes on 03-05-2025 ALT [Catalytic activity/Vol] 10 U/L <35 [facility] Serum or plasma albumin marlin urement (mass/volume)Ordered By: Kalia Byrnes on 03-05-2025 Albumin [Mass/Vol] 4.1 g/dL 3.4-4.8 [facility] Serum or plasma albumin/glob ulin mass ratioOrdered By: Kalia Byrnes on 03-05-2025 Albumin/Globulin [Mass ratio] 1.7 {ratio} 0.9-2.4 [facility] Serum or plasma alkaline quinton sphatase measurementOrdered By: Kalia Byrnes on 03-05-2025 ALP [Catalytic activity/Vol] 82 U/L 35-104 [facility] Serum or plasma calcium marlin urement (mass/volume)Ordered By: Kalia Byrnes on 03-05-2025 Calcium [Mass/Vol] 9.7 mg/dL 7.6-11.0 [facility] Serum or plasma urea nitroge n measurement (mass/volume)Ordered By: Kalia Byrnes on 03-05-2025 Urea nitrogen [Mass/Vol] 27 mg/dL High 4-19 [facility] Sodium levelOrdered By: Júnior Byrnes on 03-05-2025 Sodium [Moles/Vol] 142 mmol/L 133-145 [facility] TSH DL <= 0.005 mIU/L QnOrde red By: Kalia Byrnes on 03-05-2025 TSH Qn 1.840 uIU/mL 0.300-4.200 [facility] Thyroid Stim Hormone (TSH)on 03-05-2025 TSH 1.840 uIU/mL Normal 0.300-4.200 [facility] Comment on above: Performed By: #### L 100.0100, L501.9520, L506.1001, L500.4050 #### [facility] Laboratory [address] [place], [address] Total proteinOrdered By: Gris Byrnes on 03-05-2025 Protein [Mass/Vol] 6.6 g/dL 5.9-8.4 [facility] Vitamin D,25 Hydroxyon 03-05 Vitamin D 25-OH 51.3 ng/mL Normal 30-100 [facility] Comment on above: Result Comment: Maria T min D Status Deficiency: <20 ng/mL (50nmol/L) Insufficiency: 20-30 ng/mL (50-75 nmol/L) Sufficiency: 30-100 ng/mL (75-250 nmol/L) Toxicity: >100 ng/mL (>250 nmol/L) Performed By: #### L 100.0100, L501.9520, L506.1001, L500.4050 #### [facility] [address] [place], [address] White blood cell (WBC) count Ordered By: Kalia Byrnes on 03-05-2025 WBC (Bld) [#/Vol] 5.0 10*3/uL 4.4-11.0 [facility] Ankle Brachial Indexon 10-23 Ankle Brachial Index [facility] [address] [place] [address] Ankle Brachial Index 10/23/24 1345 MR#: [id number] Acct: [id number] Name: RADHA WARNER Rep #: [id number] : [id number] From: Binu Castellano MD Attending Dr: Dr. Kalia Byrnes MD Status: REG Jarrett ROQUE Ordering Dr: Kalia Byrnes MD Date: 10/23/24 Location: [facility] Sex: F C Admitted: Reason For Study: Weak Pulse BLE Procedure A bilateral lower extremity continuous wave Doppler with analog waveform analysis and ankle brachial indexes. Left Segmental Pressures Left brachial= 171mmHg. Left posterior tibial artery = 176mmHg. Left dorsalis pedis artery = 150mmHg. The left posterior tibial artery waveforms are triphasic. The left dorsalis pedis waveforms are triphasic. Right Segmental Pressures Right brachial= 165mmHg. Right posterior tibial artery = 187mmHg. Right dorsalis pedis artery = 142mmHg. The right posterior tibial artery waveforms are triphasic. The right dorsalis pedis waveforms are triphasic. Indices The right ankle brachial index by the posterior tibial artery is 1.09. The right ankle brachial index by the dorsalis pedis is 0.83. The left ankle brachial index by the posterior tibial artery is 1.03. The left ankle brachial index by the dorsalis pedis is 0.88. VL/Ankle Brachial Index Interpretation Summary Right DIPAK 1.09, normal. Doppler/PVR waveforms of the right ankle normal at rest. Left DIPAK 1.03, normal. Doppler/PVR waveforms of the left ankle normal at rest. Ordering Physician: Kalia Byrnes Referring Physician: KALIA BYRNES MD Performed By: Rey Andrew, T 10/23/24 1631 Date Binu Castellano MD CC: Dr. Kalia Byrnes MD Date Dictated: 10/23/24 1345 Date Transcribed: 10/23/24 1631 Parts Advisor: Signed Normal [facility] Echo Completeon 10-23-2024 Echo Complete [facility] [address] [place] [address] Echo Complete 10/23/24 1251 MR#: [id number] Acct: [id number] Name: RADHA WARNER Rep #: [id number] : [id number] From: Jake Carl MD Attending Dr: Dr. Kalia Byrnes MD Status: REG C Ordering Dr: Kalia Byrnes MD Date: 10/23/24 Location: [facility] Sex: F C Admitted: Reason For Study: Ankle Swelling Procedure This was a 2D Doppler, Color Flow transthoracic echocardiogram. Exam performed in department. Left Ventricle Normal LV size. Left ventricular systolic function is normal. Stage 1 diastolic dysfunction. The left ventricular ejection fraction is 65 %. No regional wall motion abnormalities noted. Right Ventricle Normal RV size. Normal systolic function. Atria Normal left atrium. Normal right atrium. Mitral Valve There is mild to moderate mitral annular calcification. Tricuspid Valve Normal tricuspid valve. Mild tricuspid valve insufficiency. Pulmonary artery systolic pressure is 30 mmHg. Aortic Valve Trisinus/trileaflet aortic valve. Pulmonic Valve Normal pulmonic valve. Great Vessels Normal aortic root. The pulmonary artery is normal size. Inferior vena cava collapse with respiration. Pericardium/Pleural No pericardial effusion. MMode/2D Measurements Calculations LVIDd: 4.3 cm IVSd: 1.2 cm Ao root diam: 3.6 cm LVIDs: 2.7 cm LVPWd: 0.89 cm RVDd: 3.7 cm FS: 37.9 % LAV(MOD-bp): 74.5 ml LVAd ap4: 24.2 cm2 SV(MOD-sp4): 44.4 ml LAV(MOD-bp) Indexed: 44.0 ml/m2 LVLd ap4: 6.6 cm SI(MOD-sp4): 26.2 ml/m2 LAV(MOD-sp2): 60.7 ml EDV(MOD-sp4): 71.6 ml LAV(MOD-sp4): 75.8 ml EDV(sp4-el): 74.9 ml LVAs ap4: 13.6 cm2 LVLs ap4: 6.2 cm ESV(MOD-sp4): 27.3 ml ESV(sp4-el): 25.4 ml EF(MOD-sp4): 61.9 % EF(sp4-el): 66.2 % SV(sp4-el): 49.6 ml LA A4 area: 21.5 cm2 LA dimension(2D): 3.7 cm RA A4 area: 20.0 cm2 TAPSE: 1.9 cm Time Measurements MV dec time: 0.26 sec Doppler Measurements Calculations MV E max waldo: 63.4 cm/sec Lat Peak E' Waldo: 10.3 cm/sec Med Peak E' Waldo: 3.2 cm/sec MV A max awldo: 91.1 cm/sec E/E' lat: 6.2 E/E' med: 19.8 MV E/A: 0.70 MV V2 max: 113.4 cm/sec MV P1/2t max waldo: 82.1 cm/sec Ao V2 max: 99.7 cm/sec MV max P.1 mmHg MV P1/2t: 80.1 msec Ao max P.0 mmHg MV V2 mean: 57.4 cm/sec MV mean P.6 mmHg MV dec slope: 300.3 cm/sec2 MV V2 VTI: 22.3 cm MVA(P1/2t): 2.7 cm2 LV V1 max: 84.1 cm/sec PA V2 max: 102.1 cm/sec TR max waldo: 344.0 cm/sec LV V1 max P.8 mmHg TR max P.8 mmHg LV V1 mean P.3 mmHg LV V1 mean: 51.9 cm/sec LV V1 VTI: 17.9 cm ECHO/Echo Complete Interpretation Summary Normal LV size. Left ventricular systolic function is normal. Stage 1 diastolic dysfunction. The left ventricular ejection fraction is 65 %. Pulmonary artery systolic pressure is 30 mmHg. Ordering Physician: Kalia Byrnes Referring Physician: Kalia Byrnes Performed By: Mehrdad Sandoval RCS 10/23/24 1426 Date Jake Carl MD CC: Dr. Kalia Byrnes MD Date Dictated: 10/23/24 1251 Date Transcribed: 10/23/24 142 Parts Advisor: Signed Normal [facility] 12 Lead EKGon 10-10-[address] [facility] Cardiovascular Services [address] [place] [address] 12 Lead EKG 10/10/24 1211 MR#: [id number] Acct: [id number] Name: RADHA WARNER Rep #: [id number] : [id number] From: Lazaro Cuevas MD Attending Dr: Status: DEP Ordering Dr: Mike Davison MD Date: 10/10/24 Location: ED Sex: F C Admitted: Test Reason : Blood Pressure : */* mmHG Vent. Rate : 77 BPM Atrial Rate : 77 BPM P-R Int : 160 ms QRS Dur : 84 ms QT Int : 394 ms P-R-T Axes : -23 58 0 degrees QTcB Int : 445 ms Normal sinus rhythm Normal ECG Confirmed by Lazaro Cuevas ([id number]), editor managing director ADEEL WU ([id number]) on 10/11/2024 10:19:29 AM Referred By: BEATRIZ Confirmed By: Lazaro Cuevas 10/11/24 1019 Date Lazaro Cuevas MD CC: Dr. Kalia Byrnes MD; Dr. Mike Davison MD Signed Normal [facility] BNP,B-Type NATRIURETIC PEPTI Jacqueline 10-10-2024 Natriuretic peptide B (Bld) [Mass/Vol] 218.3 pg/mL High 0-100 [facility] Comment on above: Performed By: #### L 503.6620, L100.0100, L500.2500, L501.4020 ####[facility] [address] [place], [address] Basic Metabolic Profile (BMP )on 10-10-2024 BUN/CRE 35.8 RATIO High 10-20 [facility] Comment on above: Order Comment: 'TROP ' Serial specimen #1, #2 or #3: 1 Performed By: #### L 503.6620, L100.0100, L500.2500, L501.4020 ####[facility] [address] [place], [address] CA,Total 9.6 mg/dL Normal 8.5-10.1 [facility] Comment on above: Order Comment: 'TROP ' Serial specimen #1, #2 or #3: 1 Performed By: #### L 503.6620, L100.0100, L500.2500, L501.4020 ####[facility] [address] [place], [address] Chloride [Moles/Vol] 107 mmol/L Normal 98-107 [facility] Comment on above: Order Comment: 'TROP ' Serial specimen #1, #2 or #3: 1 Performed By: #### L 503.6620, L100.0100, L500.2500, L501.4020 ####[facility] [address] [place], [address] CO2 [Moles/Vol] 29.0 mmol/L Normal 21.0-32.0 [facility] Comment on above: Order Comment: 'TROP ' Serial specimen #1, #2 or #3: 1 Performed By: #### L 503.6620, L100.0100, L500.2500, L501.4020 ####[facility] [address] [place], [address] Creatinine [Mass/Vol] 0.56 mg/dL Normal 0.55-1.02 [facility] Comment on above: Order Comment: 'TROP ' Serial specimen #1, #2 or #3: 1 Result Comment: The validity of the calculated GFR GFRAA in patients over 70 years has not been determined. Clinical correlation is essential. Performed By: #### L 503.6620, L100.0100, L500.2500, L501.4020 ####[facility] [address] [place], [address] ECRCL 45.31 ml/min Normal [facility] Comment on above: Order Comment: 'TROP ' Serial specimen #1, #2 or #3: 1 Performed By: #### L 503.6620, L100.0100, L500.2500, L501.4020 ####[facility] [address] [place], [address] EST GFR - AA 131 mL/min Normal >60 [facility] Comment on above: Order Comment: 'TROP ' Serial specimen #1, #2 or #3: 1 Result Comment: Afri can Estonian GFR Calc Performed By: #### L 503.6620, L100.0100, L500.2500, L501.4020 ####[facility] [address] [place], [address] GAP 6 Normal 5-15 [facility] Comment on above: Order Comment: 'TROP ' Serial specimen #1, #2 or #3: 1 Performed By: #### L 503.6620, L100.0100, L500.2500, L501.4020 ####[facility] [address] [place], [address] GFR/1.73 sq M.predicted among non-blacks MDRD (S/P/Bld) [Vol rate/Area] 109 mL/min/{1.73_m2} Normal >60 [facility] Comment on above: Order Comment: 'TROP ' Serial specimen #1, #2 or #3: 1 Result Comment: Non- GFR Calc Performed By: #### L 503.6620, L100.0100, L500.2500, L501.4020 ####[facility] [address] [place], [address] Glucose [Mass/Vol] 108 mg/dL High 74-106 [facility] Comment on above: Order Comment: 'TROP ' Serial specimen #1, #2 or #3: 1 Result Comment: Fast ing Glucose result from 100 to 125 mg/dL suggests IMPAIRED HOMEOSTASIS per A.D.A. criteria. Performed By: #### L 503.6620, L100.0100, L500.2500, L501.4020 ####[facility] [address] [place], [address] Potassium [Moles/Vol] 3.4 mmol/L Low 3.5-5.1 [facility] Comment on above: Order Comment: 'TROP ' Serial specimen #1, #2 or #3: 1 Performed By: #### L 503.6620, L100.0100, L500.2500, L501.4020 ####[facility] [address] [place], [address] Sodium [Moles/Vol] 142 mmol/L Normal 136-145 [facility] Comment on above: Order Comment: 'TROP ' Serial specimen #1, #2 or #3: 1 Performed By: #### L 503.6620, L100.0100, L500.2500, L501.4020 ####[facility] [address] [place], [address] Urea nitrogen [Mass/Vol] 20 mg/dL High 7-18 [facility] Comment on above: Order Comment: 'TROP ' Serial specimen #1, #2 or #3: 1 Performed By: #### L 503.6620, L100.0100, L500.2500, L501.4020 ####[facility] [address] [place], [address] CBC W/Diff, Automatedon 01-0 8-202 Absolute Lymph 0.97 X10 3/uL Normal 0.83-4.51 [facility] Comment on above: Performed By: #### L 503.6620, L100.0100, L500.2500, L501.4020 ####[facility] [address] [place], [address] Absolute Neut 2.2 X10 3/uL Normal 2.0-7.7 [facility] Comment on above: Performed By: #### L 503.6620, L100.0100, L500.2500, L501.4020 ####[facility] [address] [place], [address] Basophils/100 WBC (Bld) 0.7 % Normal 0-1 [facility] Comment on above: Performed By: #### L 503.6620, L100.0100, L500.2500, L501.4020 ####[facility] [address] [place], [address] Eosinophils/100 WBC (Bld) 8.7 % High 0-5 [facility] Comment on above: Performed By: #### L 503.6620, L100.0100, L500.2500, L501.4020 ####[facility] [address] [place], [address] Erythrocyte distribution width (RBC) [Ratio] 13.8 % Normal 11.6-14.6 [facility] Comment on above: Performed By: #### L 503.6620, L100.0100, L500.2500, L501.4020 ####[facility] [address] [place], [address] Hematocrit (Bld) [Volume fraction] 39.6 % Normal 37-47 [facility] Comment on above: Performed By: #### L 503.6620, L100.0100, L500.2500, L501.4020 ####[facility] [address] [place], [address] Hemoglobin (Bld) [Mass/Vol] 12.9 g/dL Normal 12.0-15.0 [facility] Comment on above: Performed By: #### L 503.6620, L100.0100, L500.2500, L501.4020 ####[facility] [address] [place], [address] IG% 0.500 Normal 0.0-0.9 [facility] Comment on above: Result Comment: IG% - Immature Granulocytes (promyelocytes, myelocytes and metamyelocytes) > 1% indicates that a LEFT SHIFT is Present. Performed By: #### L 503.6620, L100.0100, L500.2500, L501.4020 ####[facility] [address] [place], [address] Lymphocytes/100 WBC (Bld) 22.8 % Normal 19-41 [facility] Comment on above: Performed By: #### L 503.6620, L100.0100, L500.2500, L501.4020 ####[facility] [address] [place], [address] MCH (RBC) [Entitic mass] 35.8 pg High 27.0-32.0 [facility] Comment on above: Performed By: #### L 503.6620, L100.0100, L500.2500, L501.4020 ####[facility] [address] [place], [address] MCHC (RBC) [Mass/Vol] 32.6 g/dL Normal 32-36 [facility] Comment on above: Performed By: #### L 503.6620, L100.0100, L500.2500, L501.4020 ####[facility] [address] [place], [address] MCV (RBC) [Entitic vol] 110.0 fL High 81-99 [facility] Comment on above: Performed By: #### L 503.6620, L100.0100, L500.2500, L501.4020 ####[facility] [address] [place], [address] Monocytes/100 WBC (Bld) 16.5 % High 0-10 [facility] Comment on above: Performed By: #### L 503.6620, L100.0100, L500.2500, L501.4020 ####[facility] [address] [place], [address] Neutrophils/100 WBC (Bld) 50.8 % Normal 47-70 [facility] Comment on above: Performed By: #### L 503.6620, L100.0100, L500.2500, L501.4020 ####[facility] [address] [place], [address] Nucleated RBC (Bld) [#/Vol] 0 10*3/uL Normal 0-5 [facility] Comment on above: Performed By: #### L 503.6620, L100.0100, L500.2500, L501.4020 ####[facility] [address] [place], [address] Platelet mean volume (Bld) [Entitic vol] 9.6 fL Normal 6.2-12.0 [facility] Comment on above: Performed By: #### L 503.6620, L100.0100, L500.2500, L501.4020 ####[facility] [address] [place], [address] Platelets (Bld) [#/Vol] 163 10*3/uL Normal 150-450 [facility] Comment on above: Performed By: #### L 503.6620, L100.0100, L500.2500, L501.4020 ####[facility] [address] [place], [address] RBC (Bld) [#/Vol] 3.60 10*6/uL Low 4.2-5.4 [facility] Comment on above: Performed By: #### L 503.6620, L100.0100, L500.2500, L501.4020 ####[facility] [address] [place], [address] RDW SD 57.1 fl High 35.1-43.9 [facility] Comment on above: Performed By: #### L 503.6620, L100.0100, L500.2500, L501.4020 ####[facility] [address] [place], [address] WBC (Bld) [#/Vol] 4.3 10*3/uL Low 4.4-11.0 [facility] Comment on above: Performed By: #### L 503.6620, L100.0100, L500.2500, L501.4020 ####[facility] [address] [place], [address] Chest PA and Lateralon 10-10 Chest PA and Lateral [facility] Imaging Services [address] [place] [address] Chest PA and Lateral MR#: [id number] Acct: [id number] Name: RADHA WARNER Rep #: [id number] : 1935 F 88 From: Iglesia sue MD PCP: Dr. Kalia Byrnes MD Status: REG ER Study: Chest PA and Lateral Date of Exam: 10/10/24 Exam# [id number] Ordering Dr: Mike Davison MD [id number] STUDY: X-RAY CHEST REASON FOR EXAM: Female, 88 years old. Chest pain. TECHNIQUE: AP and lateral views of the chest. COMPARISON: Comparison is made with prior study dated February 29, 2024. FINDINGS: EKG electrodes are seen. Hyperinflation. Blunting of both costophrenic angles posteriorly. Mild degree of vascular congestion. There is mild cardiac enlargement. Normal mediastinum and bay. Normal visualized pulmonary arteries. There is atherosclerotic calcification of the aortic arch with tortuosity. There is demineralization of the osseous structures. There is degenerative osteoarthritis of the bilateral shoulders. Hiatal hernia. RAD/Chest PA and Lateral IMPRESSION: Findings suggestive of a mild degree of vascular congestion and CHF. Electronically Signed: Iglesia Lobo MD at 12:36 EST , CC: Dr. Kalia Byrnes MD; Dr. Mike Davison MD Parts Advisor: Signed Normal [facility] Emergency Department Summary on 10-10-2024 Emergency Department Summary [facility] Medical Records Department [address] [place] [address] Emergency Department Summary 10/10/24 MR#: [id number] Acct: [id number] Name: RADHA WARNER Rep #: [id number] : 1935 88 From: Mike Davison MD PCP: Dr. Kalia Byrnes MD Status:REG ER Location: ED HPI History of Present Illness Chief Complaint: Chest Other Informant: patient and family (Daughter at bedside.) Onset/Context/Timing Onset: Days and Month(s) Activity at onset: gradual Timing: Continuous Quality: Positive for Aching Location: Right Chest and Left Chest Current Severity: Mild Maximum Severity: Mild Worsened By: Movement of Torso Associated Symptoms: Negative for Nausea, Vomiting, Diaphoresis, Dyspnea, Cough, Fever, Lightheadedness, Acid Reflux or Palpitations Narrative Narrative: 88-year-old female history of anemia, hypertension, scoliosis and sciatica. Patient has 2 separate issues going on. She was slipping out of her bed on the second grab the railing to put herself up and since that time has had bilateral rib cage pain. She never actually fell out of bed or hit the floor. Also the patient had bilateral lower extremity edema for at least 2 months. She has an upcoming scheduled echocardiogram and other testing. She was on Lasix 20 and then 40 mg once a day without any relief. She has now stopped his medications. Her daughter is present at bedside helps with the history because the patient is very hard of hearing. Patient denies shortness of breath. She denies fever or cough. She denies any recent illness. Prior Similar Symptoms: Yes Recent Illness/Hospitalizati on: No CVD Risk Factors: Positive for Hypertension PE Risk Factors: Negative for Recent Travel/Surgery, Recent Immobilization, Prior DVT or PE, Cancer or OCP + Smoking + >/=35 TAD Risk Factors: Negative for Marfan's Syndrome, Hypertension or Family History PFSH PFSH Medical History Contusion of right shoulder Right shoulder strain Anemia Stomach ulcer Hypertension Home Medications ???Medication ???Instructions ???Recorded ???Last Taken ???Type amlodipine 5 mg tablet 5 mg PO QDAY 05/01/24 Unknown History Allergy/AdvReac Type Severity Reaction Status Date / Time Penicillins Allergy Intermediate PT UNSURE Verified 10/10/24 11:15 OF REACTION Family History Grandmother Breast cancer Mother Cancer bone Surgical History Hx of tonsillectomy H/O shoulder replacement H/O: hysterectomy Social History adopted: No household members: family Smoking Status: Never smoker ROS ROS ED ROS Narrative Denies recent illness. Bilateral lower extremity swelling for months. Constitutional Constitutional ED: Denies chills Eyes Eyes: Reports none ENT ENT ED: Denies ear pain, rhinorrhea or sore throat Cardiovascular Cardiovascular: Reports chest pain and other Details: Bilateral rib cage pain after trying to pull herself up in bed by the railings. Respiratory/Chest Respiratory/Chest: Denies cough or dyspnea Gastrointestinal Gastrointestinal: Denies abdominal pain, constipation, diarrhea, melena, nausea or vomiting Genitourinary Genitourinary ED: Denies dysuria or hematuria Musculoskeletal Musculoskeletal: Denies arthralgias Integumentary Denies abscess Neurologic Neurologic: Denies headache(s) Psychiatric Psychiatric: Denies anxiety Endocrine Endocrinology: Denies cold intolerance Hematologic/Lymphatic Hematologic/Lymphatic : Denies easy bleeding Allergic/Immunologic Allergic/Immunologic ED: Denies mouth swelling EXAM Physical Exam Narrative Exam Narrative: 88-year-old female vital signs are stable afebrile. Pulse ox 98% on room air no signs of hypoxia. She does not look septic or toxic. She is in no distress. She is very hard of hearing. Daughter is present in the room. H EENT exam pupils round react light. Moist mucous members. Neck nontender no JVD. No lymphadenopathy. Lungs clear to auscultation bilaterally. Heart regular rhythm rate about 80 no murmur. She does have mild bilateral rib cage tenderness. There is no ecchymosis or bruising. No subcu air or crepitance. No bony deformity. Abdomen is soft and nontender. No peritoneal signs. Pelvic girdle intact. Moving all 4 extremities. She has 1-2+ pitting edema both lower extremities. Equal symmetrical. Calves are nontender. There is no cords. Previously had a noninvasive study that was negative for DVT. Const Vital Signs: 10/10/24 11:15 10/10/24 11:47 10/10/24 12:01 Temperature 98 F Temperature Source Temporal Pulse Rate 84 Respiratory Rate 14 Respiratory Effort Nor (more content not included)... Normal [facility] L501.4020on 10-10-2024 TROPONIN-I HS 14 pg/mL Normal 3.0-54.0 [facility] Comment on above: Order Comment: 'TROP ' Serial specimen #1, #2 or #3: 1 Result Comment: Plea se Note: New Test Units and Gender Specific Reference Ranges. For more information see Policy Stat Procedure [place] High Sensitivity Troponin (TNIH) and attachments. Performed By: #### L 503.6620, L100.0100, L500.2500, L501.4020 ####[facility] [address] [place], [address] Venous Duplex US, Unilateral on 09-21-2024 Venous Duplex US, Unilateral [facility] [address] [place] [address] Venous Duplex US, Unilateral 09/21/24 1353 MR#: [id number] Acct: [id number] Name: RADHA WARNER Rep #: [id number] : 1935 88 From: Don Tinajero MD Attending Dr: Dr. Kalia Byrnes MD Status: ALYSE ROQUE Ordering Dr: Kalia Byrnes MD Date: 09/21/24 Location: CVS Sex: F C Admitted: Reason For Study: Swelling LLE RIGHT LEFT CFV is compressible, spontaneous, phasic, GSV is normal. competent and demonstrates normal CFV is compressible, spontaneous, phasic, augmentation. competent, and demonstrates normal Procedure augmentation. This is a venous duplex using B-mode, color FV is compressible, spontaneous, phasic, flow and spectral Doppler. competent and demonstrates normal Exam performed in department. augmentation. Difficult to visualize Lt calf veins due to POP V is compressible, spontaneous, phasic, swelling. competent and demonstrates normal A preliminary report was called and/or faxed augmentation. to Dr. Byrnes. T/P Trunk is compressible. PTV is compressible. LT PerV is compressible. VL/Venous Duplex US, Unilateral Interpretation Summary Deep veins of the left lower extremity are patent and compressible segmentally. There is no evidence of left lower extremity deep vein thrombosis. Valvular competence appears intact within the proximal deep venous system on the left . The left great saphenous vein appears patent and compressible segmentally. The right common femoral vein is patent and compressible . Ordering Physician: Kalia Byrnes Referring Physician: Kalia Byrnes Performed By: Katy Gonzales, LISSETH, RVT 09/21/241951 Date Don Tinajero MD CC: Dr. Kalia Byrnes MD Date Dictated: 09/21/24 1353 Date Transcribed: 09/21/241951 Parts Advisor: Signed Normal [facility] CBC W/Diff, Automatedon 08-04 Anisocytosis Ql (Bld) 1+ Normal [facility] Comment on above: Order Comment: Order Date: 08/24/24 Order Info: 0184-1 - CBCD Performed By: #### L 506.1000, L100.0100, L500.4050, L501.9520 #### [facility] [address] [place], [place], [address] Comprehensive Metabolic Prof ilon 08-28-2024 Albumin [Mass/Vol] 3.6 g/dL Normal 3.2-5.0 [facility] Comment on above: Order Comment: Order Date: 08/24/24Order Info: 0786-1 - CMPOrder Info: 3016-3 - TSH Performed By: #### L 506.1000, L100.0100, L500.4050, L501.9520 ####[facility] [address] [place], [address] Albumin/Globulin [Mass ratio] 1.2 {ratio} Normal 0.9-2.4 [facility] Comment on above: Order Comment: Order Date: 08/24/24Order Info: 0786-1 - CMPOrder Info: 3016-3 - TSH Performed By: #### L 506.1000, L100.0100, L500.4050, L501.9520 ####[facility] [address] [place], [address] ALK P 100 U/L Normal 45-117 [facility] Comment on above: Order Comment: Order Date: 08/24/24Order Info: 785-10 - CMPOrder Info: 3015-3 - TSH Performed By: #### L 506.1000, L100.0100, L500.4050, L501.9520 ####[facility] [address] [place], [address] ALT [Catalytic activity/Vol] 17 U/L Normal 13-56 [facility] Comment on above: Order Comment: Order Date: 08/24/24Order Info: 07 - CMPOrder Info: 3015-3 - TSH Performed By: #### L 506.1000, L100.0100, L500.4050, L501.9520 ####[facility] [address] [place], [address] AST [Catalytic activity/Vol] 20 U/L Normal 15-37 [facility] Comment on above: Order Comment: Order Date: 08/24/24Order Info: 07 - CMPOrder Info: 3015-3 - TSH Performed By: #### L 506.1000, L100.0100, L500.4050, L501.9520 ####[facility] [address] [place], [address] Bilirubin [Mass/Vol] 0.60 mg/dL Normal 0.20-1.00 [facility] Comment on above: Order Comment: Order Date: 08/24/24Order Info: 07-1 - CMPOrder Info: 3016-3 - TSH Result Comment: For patients on eltrombopag therapy, use of Dimension [place] TBIL is not recommended. Performed By: #### L 506.1000, L100.0100, L500.4050, L501.9520 ####[facility] [address] [place], [address] BUN/CRE 39.3 RATIO High 10-20 [facility] Comment on above: Order Comment: Order Date: 08/24/24Order Info: 07-1 - CMPOrder Info: 3016-3 - TSH Performed By: #### L 506.1000, L100.0100, L500.4050, L501.9520 ####[facility] [address] [place], [address] CA,Total 9.2 mg/dL Normal 8.5-10.1 [facility] Comment on above: Order Comment: Order Date: 08/24/24Order Info: 0786-1 - CMPOrder Info: 3016-3 - TSH Performed By: #### L 506.1000, L100.0100, L500.4050, L501.9520 ####[facility] [address] [place], [address] Chloride [Moles/Vol] 112 mmol/L High 98-107 [facility] Comment on above: Order Comment: Order Date: 08/24/24Order Info: 0786-1 - CMPOrder Info: 3016-3 - TSH Performed By: #### L 506.1000, L100.0100, L500.4050, L501.9520 ####[facility] [address] [place], [address] CO2 [Moles/Vol] 29.0 mmol/L Normal 21.0-32.0 [facility] Comment on above: Order Comment: Order Date: 08/24/24Order Info: 0786-1 - CMPOrder Info: 3016-3 - TSH Performed By: #### L 506.1000, L100.0100, L500.4050, L501.9520 ####[facility] [address] [place], [address] Creatinine [Mass/Vol] 0.61 mg/dL Normal 0.55-1.02 [facility] Comment on above: Order Comment: Order Date: 08/24/24Order Info: 0786-1 - CMPOrder Info: 3 - TSH Result Comment: The validity of the calculated GFR GFRAA in patients over 70 years has not been determined. Clinical correlation is essential. Performed By: #### L 506.1000, L100.0100, L500.4050, L501.9520 ####[facility] [address] [place], [address] EST GFR - AA 119 mL/min Normal >60 [facility] Comment on above: Order Comment: Order Date: 08/24/24Order Info: 0786-1 - CMPOrder Info: 3 - TSH Result Comment: Afri can [place] GFR Calc Performed By: #### L 506.1000, L100.0100, L500.4050, L501.9520 ####[facility] [address] [place], [address] GAP 4 Low 5-15 [facility] Comment on above: Order Comment: Order Date: 08/24/24Order Info: 0786-1 - CMPOrder Info: 3 - TSH Performed By: #### L 506.1000, L100.0100, L500.4050, L501.9520 ####[facility] [address] [place], [address] GFR/1.73 sq M.predicted among non-blacks MDRD (S/P/Bld) [Vol rate/Area] 98 mL/min/{1.73_m2} Normal >60 [facility] Comment on above: Order Comment: Order Date: 08/24/24Order Info: 07- - CMPOrder Info: 3015-3 - TSH Result Comment: Non- GFR Calc Performed By: #### L 506.1000, L100.0100, L500.4050, L501.9520 ####[facility] [address] [place], [address] Globulin (S) [Mass/Vol] 3.0 g/dL Normal 2.2-4.2 [facility] Comment on above: Order Comment: Order Date: 08/24/24Order Info: 07 - CMPOrder Info: 3015-12 - TSH Performed By: #### L 506.1000, L100.0100, L500.4050, L501.9520 ####[facility] [address] [place], [address] Glucose [Mass/Vol] 111 mg/dL High 74-106 [facility] Comment on above: Order Comment: Order Date: 08/24/24Order Info: 785-10 - CMPOrder Info: 3015-12 - TSH Result Comment: Fast ing Glucose result from 100 to 125 mg/dL suggests IMPAIRED HOMEOSTASIS per A.D.A. criteria. Performed By: #### L 506.1000, L100.0100, L500.4050, L501.9520 ####[facility] [address] [place], [address] Potassium [Moles/Vol] 3.3 mmol/L Low 3.5-5.1 [facility] Comment on above: Order Comment: Order Date: 08/24/24Order Info: 0786- - CMPOrder Info: 3 - TSH Performed By: #### L 506.1000, L100.0100, L500.4050, L501.9520 ####[facility] [address] [place], [address] Sodium [Moles/Vol] 145 mmol/L Normal 136-145 [facility] Comment on above: Order Comment: Order Date: 08/24/24Order Info: 0786- - CMPOrder Info: 3016-3 - TSH Performed By: #### L 506.1000, L100.0100, L500.4050, L501.9520 ####[facility] [address] [place], [address] T PROT 6.6 g/dL Normal 6.4-8.2 [facility] Comment on above: Order Comment: Order Date: 08/24/24Order Info: 0786-1 - CMPOrder Info: 6-3 - TSH Performed By: #### L 506.1000, L100.0100, L500.4050, L501.9520 ####[facility] [address] [place], [address] Urea nitrogen [Mass/Vol] 24 mg/dL High 7-18 [facility] Comment on above: Order Comment: Order Date: 08/24/24Order Info: 0786-1 - CMPOrder Info: 3015-3 - TSH Performed By: #### L 506.1000, L100.0100, L500.4050, L501.9520 ####[facility] [address], [address] Thyroid Stim Hormone (TSH)on 08-28-2024 TSH 1.170 uIU/mL Normal 0.358-3.740 [facility] Comment on above: Order Comment: Order Date: 08/24/24Order Info: 0786-1 - CMPOrder Info: 6-3 - TSH Performed By: #### L 506.1000, L100.0100, L500.4050, L501.9520 ####[facility] [address] [place], [address] Vitamin D,25 Hydroxyon 08-28 Vitamin D 25-OH 31.8 ng/mL Normal [facility] Comment on above: Order Comment: Order Date: 08/24/24 Order Info: 78315-9 - VITD25 Result Comment: Maria T min D 25(OH) Status Range Deficiency <20 ng/mL (50nmol/L) Insufficiency 20 - 30 ng/mL (50 - 75 nmol/L) Sufficiency 30 - 100 ng/mL (75 - 250 nmol/L) Toxicity >100 ng/mL (>250 nmol/L) Performed By: #### L 506.1000, L100.0100, L500.4050, L501.9520 #### [facility] [address] [facility] [place], [address] L/S Spine Min 4 Viewson 11-0 -2023 L/S Spine Min 4 Views [facility] [address] [place] [address] L/S Spine Min 4 Views MR#: [id number] Acct: [id number] Name: RADHA WARNER Rep #: [id number] : 1935 F 88 From: Lemuel bosch MD PCP: Dr. Kalia Byrnes MD Status: DEP AMB Study: L/S Spine Min 4 Views Date of Exam: 08/03/24 Exam# [id number] Ordering Dr: Yael Boo [id number] INDICATION: low back pain -- please do upright AP, LAT, flex/ext EXAMINATION/TECHNIQUE : X-RAY - XR Spine Lumbar Min 4 Views COMPARISON: No relevant prior comparison study available __ FINDINGS: VERTEBRAE: Preserved vertebral body height. No fracture. No spondylolisthesis. Preservation of the normal lumbar lordosis. Prominent dextroscoliosis. Posterior fusion hardware in place at L4-S1 bridging the L5 level. The bones are significantly osteopenic which limits evaluation. No gross evidence of instability on flexion and extension. DISCS: Not well evaluated due to the extent of osteopenia. INCLUDED ABDOMEN: Included bowel gas pattern is non-obstructive. Prominent stool throughout the colon. RAD/L/S Spine Min 4 Views IMPRESSION: Study limited due to significant osteopenia. Dextroscoliosis. Posterior fusion hardware intact. Multilevel degenerative change. No evidence of instability. Electronically Signed: Lemuel Wagner MD at 1:28 EDT , CC: BRITT Raya; Dr. Kalia Byrnes MD Parts Advisor: Signed Normal [facility] Orthopedic Visit Reporton Orthopedic Visit Report [facility] [address] [place] [address] [address] [place] [address] OFFICE VISIT Date of Service: 08/03/24 MR#: [id number] Acct: [id number] Name: RADHA WARNER Rep #: [id number] : 1935 Provider: BRITT Raya Age/Sex: 88/F Location[facility] Status: Signed Intake Vital Signs 05/01/24 10:47 08/03/24 09:49 Height 5 ft 2 in 5 ft 2 in Weight: 121 lb 144 lb BMI 22.1 26.3 BP 132/82 H Blood Pressure Location Lt brachial Position Sitting Respiration 18 Pulse 83 Pulse Source Monitor Temp 97.8 F Temp Source Temporal Pulse Oximetry (%) 94 Oxygen Delivery Method room air Intake Visit Reasons: LUMBAR SPINE Chief Complaint: lumbar spine Is patient in pain?: Yes (low back pain) Pain scale (1-10): 4 Allergies Penicillins Allergy (Intermediate, Verified 08/03/24 09:58) PT UNSURE OF REACTION Medications ???Medication ???Instructions ???Recorded ???Confirmed ???Type amlodipine 5 mg tablet 5 mg PO QDAY 05/01/24 05/01/24 History prednisone 20 mg tablet 20 mg PO BID #10 tabs 05/01/24 05/01/24 Rx tramadol 50 mg tablet 50 mg PO QDAY PRN 05/01/24 05/01/24 History Have you fallen in the past year?: Yes PFSH Medical History Contusion of right shoulder Right shoulder strain Anemia Stomach ulcer Hypertension Surgical History Hx of tonsillectomy H/O shoulder replacement H/O: hysterectomy Family History Grandmother Breast cancer Mother Cancer bone Social History adopted: No HPI LUMBAR SPINE Chief Complaint: lumbar spine Details: This documentation accurately reflects the service provided and the decisions made by me, BRITT Raya 08/03/24 0948. Part of today???s visit was documented by [ ], acting as scribe. RADHA WARNER is a 88 year old F here today for lumbar spine pain. Pt. presents using a cane for ambulation, accompanied by her daughter. She states she has scoliosis and has had 2 major back surgeries 1973 and 1977. She has dealt with back pain for most of her life and it has gradually worsened. She fell 2 months ago and hurt her right shoulder. She was seen at urgent care where Xrays were done, negative for fractures. She was put on Prednisone for her right shoulder pain which has helped her low back pain. She c/o low back pain and bilateral sciatica pain with right being worse. Her pain extends down her bilateral lateral thighs to the knee, worse on right. Also mentions that she has bilateral foot numbness. She denies previous back injections. She does not sleep at night d/t restless legs and low back pain. She takes 2-3 hot showers a night to help with the pain. Ortho Exam General General: Yes no acute distress Neurologic: Yes alert and Yes oriented x3 Spine SPINE TESTING CERVICAL THORACIC LUMBAR Musculoskeletal Strength 0=absent - 5=normal Details: Neurological exam of the lower extremities shows 5x5 power and 4+ power with bilateral hip flexion. Normal sensations across all dermatomes. Mild midline tenderness and paraspinal tenderness across entire back. 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 Scoliosis type: idiopathic Idiopathic scoliosis type: juvenile Spinal region: thoracolumbar Osteoporosis without current pathological fracture, unspecified osteoporosis type M81.0 Osteoporosis type: unspecified Presence of current pathological fracture: without current pathological fracture Assessment and Plan Assessment and Plan (1) Lumbar radiculopathy: Status: Acute (2) Scoliosis: Status: Acute Qualifiers: Scoliosis type: idiopathic Idiopathic scoliosis type: juvenile Spinal region: thoracolumbar Qualified Code(s): M41.115 - Juvenile idiopathic scoliosis, thoracolumbar region (3) Osteoporosis: Status: Acute Qualifiers: Osteoporosis type: unspecified Presence of current pathological fracture: without current pathological fracture Qualified Code(s): M81.0 - Age-related osteoporosis without current pathological fracture Orders: Orders L/S Spine Min 4 Views Today M54.50 - Low back pain, unspecified Referrals Pain Management M41.9 - Scoliosis, unspecified, M54.16 - Radiculopathy, lumbar region Plan Obtained and reviewed xrays today with the patient which shows a significant thoracolumbar dextroscoliosis with prior stable surgical hardware. Xrays also show severly low bone density. Review of the DEXA scan from 05/23/24 shows severe osteoporosis with the worst T-score of left forearm being -5.3 All (more content not included)... Normal [facility] Vital Signs Date Time Vital Sign Value Performing Clinician Faci lity 05-08-2025 11:140400 Body height 160.02 cm Kalia Byrnes MD Work Phone: [facility] 05-08-2025 11:14-0400 Body mass index (BMI) [Ratio] 24 kg/m2 Kalia Byrnes MD Work Phone: [facility] 05-08-2025 11:14-0400 Body weight 61.68 kg Kalia Byrnes MD Work Phone: [facility] 05-08-2025 11:14-0400 Diastolic blood pressure 83 mm[Hg] Kalia Byrnes MD Work Phone: [facility] 05-08-2025 11:14-0400 Heart rate 66 /min Kalia Byrnes MD Work Phone: [facility] 05-08-2025 11:14-0400 Respiratory rate 16 /min Kalia Byrnes MD Work Phone: [facility] 05-08-2025 11:14-0400 Systolic blood pressure 152 mm[Hg] Kalia Byrnes MD Work Phone: [facility] Encounters Encounter Date Encounter Type Care Provider Facility Start: 06-11-2025 ambulatory Jake Carl Facility:[facility] Start: 05-08-2025 End: 05-08-[address] Jake Carl MD -[facility] Work Phone: Start: 05-08-2025 End: 05-08-2025 ambulatory Kalia Byrnes MD Work Phone: -[facility] Start: 04-02-2025 Non-patient / Non-visit Dr. Sri olson MD -[facility] Work Phone: Start: 03-05-2025 End: 03-05-2025 ambulatory Kalia Byrnes MD Work Phone: [facility] Work Phone: Start: 03-05-2025 End: 03-05-[address] Kalia Byrnes MD -[facility] Start: 03-05-2025 End: 03-05-2025 ambulatory Chalon Fitz Facility:[facility] Start: 11-20-2024 ambulatory Chalyanira Fitz Facility:[facility] Start: 10-23-2024 ambulatory Chalon Fitz Facility:[facility] Start: 10-23-2024 End: 10-23-2024 ambulatory Chalon Fitz Facility:[facility] Start: 10-10-2024 End: 10-10-2024 Emergency department patient visit Chalon Fitz Facility:[facility] Start: 09-21-2024 End: 09-21-2024 ambulatory Chalon Fitz Facility:[facility] Start: 08-28-2024 End: 08-28-2024 ambulatory Chalon Fitz Facility:[facility] Start: 08-03-2024 End: 08-03-2024 ambulatory Chalon Fitz Facility:[facility] Procedures Date Procedure Procedure Detail Performing Clinician Start: 03-05-2025 Vitamin D, 25-hydrox y measurement Kalia Byrnes MD Work Phone: Comment on above: Vitamin D StatusDefi ciency: <20 ng/mL (50nmol/L)Insufficiency: 20-30 ng/mL (50-75 nmol/L)Sufficiency: 30-100 ng/mL (75-250 nmol/L)Toxicity: >100 ng/mL (>250 nmol/L) Plan of Treatment Date Care Activity Detail Author Start: 05-08-2025 Evaluation of diagno [facility] study results [place] [facility] Payers Date Payer Category Payer Medicare [id number] 2024 Self-pay 2024 Unknown [id number] Medicare [id number] Private Health Insurance [id number] Unknown [id number] 2.16.8 [id number] Unknown [id number] 2.16.8 [id number] Unknown [id number] 2.16.8 [id number] Unknown [id number] 2.16.8 [id number] Unknown [id number] 2.16.8 [id number] Unknown [id number] 2.16.8 [id number] Unknown [id number] 2.16.8 [id number] Unknown [id number] 2.16.8 [id number] Unknown [id number] 2.16.8 [id number] Unknown [id number] 2.16.8 [id number] Unknown [id number] 2.16.8 [id number] Unknown [id number] 2.16.8 [id number] Social History Date Type Detail Facility Start: 10-10-2024 End: 04-22-2025 Tobacco smoking status NHIS Never smoked tobacco (finding) [facility] Start: 1935 Sex Assigned At Female [facility] Evaluation note Note Date & Type Note Facility Evaluation note No assessment information availa [facility] Work Phone: Reason for referral (narrative) Note Date & Type Note Facility Reason for referral (narrative) No reason for referral information available [facility] Work Phone: Family History No Family History Records Found Relationship Condition Age at Onset Recorded Date/T stephanie grandmother Malignant neoplasm of breast Unknown mother Malignant neoplasm Unknown Chief Complaint and Reason for Visit Chief Complaint Admit Date ABN EKG (FITZ) May 08, 2025 10: 59am Summary Purpose Advance Directives No Advanced Directives Records Found Additional Source Comments Care Teams (unrecognized sec tion and content) Team Status: Active Member Role Status Christo Byrnes MD Primary Care Provider Active Team Status: Inactive Member Role Status Christo Byrnes MD Primary Care Provider Active St art: March 05, 2025 End: March 05, 2025 Kalia Byrnes MD Attending Provider Active Start : March 05, 2025 End: March 05, 2025 Kalia Byrnes MD Referring Provider Active Start : March 05, 2025 End: March 05, 2025 Team Status: Active Member Role/Relationship Status Christo Byrnes MD Primary Care Provider Active Team Status: Inactive Member Role/Relationship Status Christo Byrnes MD Primary Care Provider Active St art: March 05, 2025 End: March 05, 2025 Kalia Byrnes MD Attending Provider Active Start : March 05, 2025 End: March 05, 2025 Kalia Byrnes MD Referring Provider Active Start : March 05, 2025 End: March 05, 2025 Team Status: Inactive Member Role/Relationship Status Christo Byrnes MD Primary Care Provider Active St art: April 02, 2025 Dr. Sri Barnes MD Attending Provider Active Start: April 02, 2025 Team Status: Inactive Member Role/Relationship Status Dates Kalia Byrnes MD Primary Care Provider Active St art: May 08, 2025 End: May 08, 2025 Kalia Byrnes MD Referring Provider Active Start : May 08, 2025 End: May 08, 2025 Dr. Jake Carl MD Attending Provider Active S tart: May 08, 2025 End: May 08, 2025 Goals (unrecognized section and content) Goals may be documented in a n alternate sectionGoals may be documented in an alternate section INFORMATION SOURCE (unrecogn ized section and content) DATE CREATED AUTHOR 05/24/2025 [facility] FOR RECORDS PERTAINING TO PATIENTS WHO ARE OR HAVE BEEN ENROLLED IN A CHEMICAL DEPENDENCY/SUBSTANCEABUSE PROGRAM, SOME INFORMATION MAY BE OMITTED. This clinical summary was aggregated from multiple sources. Caution should be exercised in using it in the provision of clinical care. This summary normalizes information from multiple sources, and as a consequence, information in this document may materially change the coding, format and clinical context of patient data. In addition, data may be omitted in some cases. CLINICAL DECISIONS SHOULD BE BASED ON THE PRIMARY CLINICAL RECORDS. better. [facility]. provides no warranty or guarantee of the accuracy or completeness of information in this document.
== END | disposition home or self-care (01) ==
LOC: PSN 11:54
PROVIDERS: PCP Family Medicine; Referring Provider Internal Medicine Cardiovascular Disease; Visit Provider Internal Medicine Cardiovascular Disease
DX: R42 Dizziness and giddiness (principal)
CPT/HCPCS: 93225; 93226

== ENCOUNTER → 2025-09-06 | Outpatient (CLI) | payer MEDICARE, SELFPAY ==
--- OUTSIDE RECORDS SUMMARY | 2025-09-06 12:21 | XMS RPT_ITS | CCD ---
Author Organization [facility] CliniSyri Care Team Providers Care Preschool Education Director Name Role Phone Fitz KHALIL, Kalia Primary Care Provider Fitz KHALIL, Kalia Attending Provider Fitz KHALIL, Kalia Referring Provider Molly KHALIL, Dr. Fierro Attending Provider Meseret KHALIL, Dr. Joseph Attending Provider Dr. Sri Barnes MD Attending Provider Meseret KHALIL, Dr. Joseph Referring Provider Fitz KHALIL, Kalia Primary Care Physician Fitz KHALIL, Kalia Attending Physician [phone] Molly KHALIL, Dr. Fierro Attending Physician Meseret KHALIL, Dr. Joseph Attending Physician Yessy Rose Attending Unavailable Fitz, Chalon Primary Care Unavailable Fitz, Chalon Referring Unavailable Jake Carl Attending Unavailable MeseretJake Referring Unavailable Fitz, Chalon Primary Care Unavailable Fitz, Chalon Primary Care Unavailable Fitz, Chalon Attending Unavailable Fitz, Chalon Primary Care Unavailable Fitz, Chalon Attending Unavailable Fitz, Chalon Referring Unavailable Fitz, Chalon Primary Care Unavailable Fitz, Chalon Attending Unavailable Fitz, Chalon Referring Unavailable Fitz, Chalon Primary Care Unavailable Fitz, Chalon Attending Unavailable Fitz, Chalon Referring Unavailable Fitz, Chalon Primary Care Unavailable Mike Davison Attending Unavailable Fitz, Chalon Primary Care Unavailable Meseret, [place] Attending Unavailable Fitz, Chalon Referring Unavailable Sri Barnes Attending Unavailable Fitz, Chalon Referring Unavailable Fitz, Chalon Primary Care Unavailable Sri Barnes Attending Unavailable Kalia Byrnes Primary Care Unavailable Jake Carl Attending Unavailable Kalia Byrnes Primary Care Unavailable Kalia Byrnes Primary Care Unavailable Binu Castellano Attending Unavailable Kalia Byrnes Referring Unavailable Allergies Allergy Classification Reported Allergen(s) Allergy Type Date of Onset Reaction(s) Facility (4 sources) Penicillins Allergy to substance 5 PT UNSURE OF REACTION [facility] (1 source) Penicillins Drug allergy (disorder) 5 [facility] Repository Medications Current Medications Medication Drug Class(es) Dates Sig (Normalized) Sig (Original) amLODIPine 2.5 mg oral tablet (7 sources) Dihydropyridine Calcium Channel Jarod Start: 04-22-2025 take 1 tablet by mouth once daily Amlodipine 2.5 mg tablet Active 2.5 mg PO daily April 22, 2025 12:00am Complies with drug therapy Start: 05-01-2024 End: 04-22-2025 take 1 tablet by mouth once daily Amlodipine 5 mg tablet Discontinued 5 mg PO daily May 01, 2024 12:00am April 22, 2025 9:35am meloxicam 15 mg oral tablet (2 sources) Nonsteroidal Anti-inflammatory Drug Start: 06-18-2025 take 1 tablet by mouth once daily Meloxicam 15 mg tablet Active 15 mg PO daily June 18, 2025 12:00am Complies with drug therapy predniSONE 20 mg oral tablet (6 sources) Start: 06-18-2025 take 1 tablet by mouth twice daily Prednisone 20 mg tablet Active 20 mg PO TWICE A DAY June 18, 2025 12:00am Complies with drug therapy Start: 05-01-2024 End: 10-10-2024 take 1 tablet by mouth twice daily Prednisone 20 mg tablet Discontinued 20 mg PO TWICE A DAY 10 0 May 01, 2024 12:00am October 10, 2024 12:43pm Vibegron (1 source) Start: 04-22-2025 take 1 tablet by mouth once daily Vibegron (Gemtesa) 75 mg tablet Active 75 mg PO daily April 22, 2025 12:00am Complies with drug therapy Vibegron (Gemtesa) 75 mg tablet (2 sources) Start: 04-22-2025 take 1 tablet by mouth once daily Vibegron (Gemtesa) 75 mg tablet Active 75 mg PO daily April 22, 2025 12:00am Completed/Discontinued Medications Medication Drug Class(es) Dates Sig (Normalized) Sig (Original) alendronic acid 70 mg oral tablet (3 sources) Bisphosphonate Start: 04-22-2025 End: 05-08-2025 take 1 tablet by mouth every week Alendronate 70 mg tablet Discontinued 70 mg PO EVERY WEEK April 22, 2025 12:00am May 08, 2025 11:26am DULoxetine 20 mg delayed release oral capsule (3 sources) Serotonin and Norepinephrine Reuptake Inhibitor Start: 04-22-2025 End: 05-08-2025 take 1 capsule by mouth once daily Duloxetine 20 mg capsule,delayed release(DR/EC) Discontinued 20 mg PO daily April 22, 2025 12:00am May 08, 2025 11:26am furosemide 20 mg oral tablet (3 sources) Loop Diuretic Start: 04-22-2025 End: 05-08-2025 take 1 tablet by mouth once daily Furosemide (Lasix) 20 mg tablet Discontinued 20 mg PO daily April 22, 2025 12:00am May 08, 2025 11:26am omeprazole 10 mg delayed release oral capsule (3 sources) Proton Pump Inhibitor Start: 04-22-2025 End: 05-08-2025 take 1 capsule by mouth once daily Omeprazole 10 mg capsule,delayed release(DR/EC) Discontinued 10 mg PO daily April 22, 2025 12:00am May 08, 2025 11:26am traMADol hydrochloride 50 mg oral tablet (4 sources) Opioid Agonist Start: 05-01-2024 End: 10-10-2024 take 1 tablet by mouth once daily as needed Tramadol 50 mg tablet Discontinued 50 mg PO daily as needed May 01, 2024 12:00am October 10, 2024 12:44pm Problems Active Problems Problem Classification Problem Date Documented Date Episodic/Chronic Conditions associated with dizziness or vertigo (6 sources) Dizziness; Translations: [Dizziness and giddiness] Onset: 06-20-2025 04-22-2025 Episodic Congestive heart failure; nonhypertensive (4 sources) Congestive heart failure; Translations: [Heart failure, unspecified] 10-18-2024 Chronic Deficiency and other anemia (3 sources) Anemia; Translations: [Anemia, unspecified] 04-22-2025 Episodic Esophageal disorders (3 sources) Gastroesophageal reflux disease; Translations: [Gastro-esophageal reflux disease without esophagitis] 04-22-2025 Chronic Essential hypertension (7 sources) Hypertensive disorder; Translations: [Essential (primary) hypertension] Onset: 05-08-2025 04-22-2025 Chronic Fluid and electrolyte disorders (3 sources) Hypokalemia; Translations: [Hypokalemia] 04-22-2025 Episodic Genitourinary symptoms and ill-defined conditions (3 sources) Urge incontinence of urine; Translations: [Urge incontinence] 06-18-2025 Chronic Genitourinary symptoms and ill-defined conditions (3 sources) Nocturia; Translations: [Nocturia] 06-18-2025 Episodic Intracranial injury (3 sources) History of concussion injury of brain; Translations: [Personal history of traumatic brain injury] 04-22-2025 Episodic Mood disorders (3 sources) Depressive disorder; Translations: [Depression] 04-22-2025 Chronic Osteoporosis (4 sources) Osteoporosis; Translations: [Age-related osteoporosis without current pathological fracture] 08-03-2024 Chronic Other acquired deformities (4 sources) Scoliosis deformity of spine; Translations: [Scoliosis, unspecified] 08-03-2024 Chronic Other circulatory disease (3 sources) Orthostatic hypotension; Translations: [Orthostatic hypotension] 04-22-2025 Episodic Other diseases of bladder and urethra (3 sources) Overactive bladder; Translations: [Overactive bladder] 06-18-2025 Chronic Other hereditary and degenerative nervous system conditions (3 sources) Restless legs; Translations: [Restless legs syndrome] 04-22-2025 Chronic Other nervous system disorders (3 sources) Other symptoms and signs involving cognitive functions and awareness; Translations: [Cognitive change] 04-22-2025 Episodic Residual codes; unclassified (4 sources) Peripheral edema; Translations: [Localized edema] 10-18-2024 Episodic Residual codes; unclassified (3 sources) Insomnia; Translations: [Insomnia, unspecified] 04-22-2025 Episodic Residual codes; unclassified (3 sources) Edema; Translations: [Edema, unspecified] 04-22-2025 Episodic Spondylosis; intervertebral disc disorders; other back problems (8 sources) Lumbar radiculopathy; Translations: [Radiculopathy, lumbar region] 08-03-2024 Episodic Sprains and strains (4 sources) Shoulder strain; Translations: [Strain of unspecified muscle, fascia and tendon at shoulder and upper arm level, right arm, initial encounter] 05-01-2024 Episodic Superficial injury; contusion (4 sources) Contusion of right shoulder; Translations: [Contusion of right shoulder, initial encounter] 05-01-2024 Episodic Past or Other Problems Problem Classification Problem Date Documented Date Episodic/Chronic Nonspecific chest pain (1 source) Other chest pain; Translations: [Other chest pain] Onset: 03-29-2025 Episodic Other non-traumatic joint disorders (1 source) Effusion, unspecified ankle; Translations: [Effusion, unspecified ankle] Onset: 11-11-2024 Episodic Other screening for suspected conditions (not mental disorders or infectious disease) (4 sources) Electrocardiogram abnormal; Translations: [Abnormal electrocardiogram [ECG] [EKG]] Onset: 05-08-2025 04-22-2025 Episodic Residual codes; unclassified (1 source) Localized edema; Translations: [Localized edema] Onset: 10-25-2024 Episodic Results Test Name Value Interpretation Reference Range Facility Office Visit Reporton [address] [facility] [address] [place] [address] OFFICE VISIT Date of Service: 08/02/25 MR#: [id number] Acct: [id number] Patient: RADHA WARNER Rep #: [id number] : 1935 Provider: Dr. Sri Henry i, MD Age/Sex: 89/F Location[place] [facility] [place] Status: Signed Intake Vital Signs 06/18/25 13:57 Height 5 ft 3 in Weight: 136 lb BMI 24.0 BP 130/88 H Pulse 82 Intake Visit Reasons: urine drop Chief Complaint: urine drop off Allergies Penicillins Allergy (Intermediate, Verified 06/18/25 13:55) PT UNSURE OF REACTION Have you fallen in the past year?: Yes (2x ) Nurse's Note: incontinance and HKW wanted to check for infection before switching meds. 4 pads per night. Assessment and Plan Assessment and Plan Orders: Orders POC UA Auto w/o Microscopy 08/02/25 N39.41 - Urge incontinence Clinical Quality Measures Falls Risk Screening/Assistive Devices Have you fallen in the past year?: Yes (2x ) 08/08/25 1512 Date Sri Barnes MD Cosigner Signature: Date (if applicable) CC: [place] [facility] MR/BMSElijah 06-18-2025 MR/NOEMI [facility] [address], [address] [place] [address] OFFICE VISIT Date of Service: 06/18/25 MR#: [id number] Acct: [id number] Name: TIMMYRADHA NEAL Rep #: [id number] : 1935 Provider: Dr. Sri Henry i, MD Age/Sex: 89/F [place] [facility] [place]: S[place] Intake Vital Signs 10/10/24 11:15 05/08/25 11:14 06/18/25 13:57 Height 5 ft 3 in 5 ft 3 in 5 ft 3 in Weight: 136 lb 136 lb BMI 24.0 24.0 BP 152/83 H 130/88 H Blood Pressure Location Lt brachial Position Sitting Respiration 16 Pulse 66 82 Pulse Source Monitor Intake Visit Reasons: 3m med f/u Chief Complaint: 3 month gemtesa follow up Coast[employer] Officer Required: No Accompanied by: Daughter Is patient in pain?: No Allergies Penicillins Allergy (Intermediate, Verified 06/18/25 13:55) PT UNSURE OF REACTION Medications ???Medication ???Instructions ???Recorded ???Confirmed ???Type amlodipine 2.5 mg tablet 2.5 mg PO QDAY 04/22/25 06/18/25 H istory vibegron 75 mg tablet (Gemtesa) 75 mg PO QDAY 04/22/25 06/18/25 Hi story meloxicam 15 mg tablet 15 mg PO QDAY 06/18/25 06/18/25 Hi story prednisone 20 mg tablet 20 mg PO BID 06/18/25 06/18/25 His tory Have you fallen in the past year?: No Nurse's Note: daytime is much better but nocturis is every 2 hrs Milk at bed causes incontinance through the night Patient refused urine sample and Bladder scan PVR PFSH Medical History Nocturia Urge incontinence Overactive bladder Hypokalemia Depression RLS (restless legs syndrome) Insomnia [...] never substance use type: does not use HPI HPI Urology Chief Complaint: 3 month gemtesa follow up Details: RADHA WARNER, is a 89 F. She is here for medication follow up. She has been taking Gemtesa 75mg daily. She is not having side effects from the medication. She is limiting fluids before bed. She is flooding pads during the night. She would like to continue with this medication. We discussed that there are not many options at this time that do not have significant side effects. They will try to adjust the Gemtesa to night time. She is using one pad during the day and two during the night. She has not had any urinary tract infections since the last visit. She has not had any blood in the urine since the last visit. She has no new urologic concerns to discuss today. Of note, PCP has placed her on steroids for an acute arthritis flare. ROS Const Constitutional: No chills, fatigue, fever(s), headache(s), night sweats, weakness, weight change, abnormal sleep pattern or change in appetite Eyes Eyes: No change in vision ENT ENT: No headache(s) or dry mouth Resp Respiratory: No cough, chest congestion, shortness of breath or wheezing Cardio Cardiology: Positive for other (No chest pain.); No shortness of breath, irregular heart rhythm or lightheadedness Gastro GI: Positive for other (No nausea.); No abdominal pain, change in bowel habits, constipation, diarrhea or vomiting Musc Musculoskeletal: Positive for other (arthritis flare, acute); No abnormal gait Skin Skin: No yellowing of the eye, lesions, itchy eyes, rash or skin ulcer Neuro Neurology: No abnormal gait, confusion, dizziness, weakness, headache(s) or memory loss Psych Psychiatric: No abnormal sleep pattern, No change in appetite, No confusion and No memory loss Endo Endocrine: No fatigue, increased thirst/drinking or weight change Aller/Imm Allergy/Immunologic: No itchy eyes or wheezing Michael/Lymp Hematologic/Lymphatic : No easy bleeding, easy bruising or enlarged lymph nodes Exam Const General: cooperative, healthy appearing, comfortable and no acute distress HENMT Head: normocephalic and atraumatic Ears: hearing grossly normal bilaterally and external ears normal Nose: external nose normal Eyes General: appearance normal, both eyes and all related structures Neck Neck: normal visual inspection and trachea midline Chest Chest palpation inspection: normal inspection of the chest Resp Effort Inspection: normal respiratory effort, able to speak in complete sentences and symmetric chest movement Card (more content not included)... Normal [facility] Cardiology Visit Reporton Cardiology Visit Report [facility] [address] [place] [address] OFFICE VISIT Date of Service: 05/08/25 MR#: [id number] Acct: [id number] Name: RADHA WARNER Rep #: [id number] : 1935 Provider: Dr. Jake Carl MD Age/Sex: 89/F Location[place] [facility] [place] Status: Signed HPI HPI History of Present [...] Source Monitor Intake Visit Reasons: ABN EKG (FITZ) Coast[employer] Officer Required: No Accompanied by: Daughter Is patient [...] intact bilater (more content not included)... Normal [facility] Absolute lymphocyte countOrd ered By: Kalia Byrnes on 03-05-2025 Lymphocytes Auto (Unsp spec) [#/Vol] 1.47 10*3/uL 0.83-4.51 [facility] Absolute neutrophil countOrd ered By: Kalia Byrnes on 03-05-2025 Neutrophils (Bld) [#/Vol] 2.6 10*3/uL 2.0-7.7 [facility] Anion gap in Serum or Plasma Ordered By: Kalia Byrnes on 03-05-2025 Anion gap [Moles/Vol] 11 mmol/L 5-15 [facility] Automated lymphocyte count a s percentage of total leukocytesOrdered By: Kalia Byrnes on 03-05-2025 Lymphocytes/100 WBC Auto (Unsp spec) 29.6 % 19-41 [facility] BUN/creatinine ratioOrdered By: Kalia Byrnes on 03-05-2025 Urea nitrogen/Creatinine [Mass ratio] 40.4 mg/mg High 10-20 [facility] Basophil percentageOrdered B y: Kalia Byrnes on 03-05-2025 Basophils/100 WBC (Bld) 0.8 % 0-1 [facility] Bilirubin, totalOrdered By: Kalia Byrnes on 03-05-2025 Bilirubin [Mass/Vol] 0.42 mg/dL 0.00-1.30 [facility] CBC W/Diff, Automatedon Absolute Lymph 1.47 X10 3/uL Normal 0.83-4.51 [facility] Comment on above: Performed By: #### L 100.0100, L500.4050, L501.9520, L506.1001 #### [facility] [address] [place], [address] Absolute Neut 2.6 X10 3/uL Normal 2.0-7.7 [facility] Comment on above: Performed By: #### L 100.0100, L500.4050, L501.9520, L506.1001 #### [facility] [address] [place], [address] Basophils/100 WBC (Bld) 0.8 % Normal 0-1 [facility] Comment on above: Performed By: #### L 100.0100, L500.4050, L501.9520, L506.1001 #### [facility] [address] [place], [address] Eosinophils/100 WBC (Bld) 3.8 % Normal 0-5 [facility] Comment on above: Performed By: #### L 100.0100, L500.4050, L501.9520, L506.1001 #### [facility] [address] [place], [address] Erythrocyte distribution width (RBC) [Ratio] 14.6 % Normal 11.6-14.6 [facility] Comment on above: Performed By: #### L 100.0100, L500.4050, L501.9520, L506.1001 #### [facility] [address] [place], [address] Hematocrit (Bld) [Volume fraction] 41.9 % Normal 37-47 [facility] Comment on above: Performed By: #### L 100.0100, L500.4050, L501.9520, L506.1001 #### [facility] [address] [place], [address] Hemoglobin (Bld) [Mass/Vol] 13.8 g/dL Normal 12.0-15.0 [facility] Comment on above: Performed By: #### L 100.0100, L500.4050, L501.9520, L506.1001 #### [facility] [address] [place], [address] IG% 0.400 Normal 0.0-0.9 [facility] Comment on above: Result Comment: IG% - Immature Granulocytes (promyelocytes, myelocytes and metamyelocytes) > 1% indicates that a LEFT SHIFT is Present. Performed By: #### L 100.0100, L500.4050, L501.9520, L506.1001 #### [facility] [address] [place], [address] Lymphocytes/100 WBC (Bld) 29.6 % Normal 19-41 [facility] Comment on above: Performed By: #### L 100.0100, L500.4050, L501.9520, L506.1001 #### [facility] [address] [place], [address] MCH (RBC) [Entitic mass] 35.3 pg High 27.0-32.0 [facility] Comment on above: Performed By: #### L 100.0100, L500.4050, L501.9520, L506.1001 #### [facility] [address] [place], [address] MCHC (RBC) [Mass/Vol] 32.9 g/dL Normal 32-36 [facility] Comment on above: Performed By: #### L 100.0100, L500.4050, L501.9520, L506.1001 #### [facility] [address] [place], [address] MCV (RBC) [Entitic vol] 107.2 fL High 81-99 [facility] Comment on above: Performed By: #### L 100.0100, L500.4050, L501.9520, L506.1001 #### [facility] [address] [place], [address] Monocytes/100 WBC (Bld) 12.5 % High 0-10 [facility] Comment on above: Performed By: #### L 100.0100, L500.4050, L501.9520, L506.1001 #### [facility] [address] [place], [address] Neutrophils/100 WBC (Bld) 52.9 % Normal 47-70 [facility] Comment on above: Performed By: #### L 100.0100, L500.4050, L501.9520, L506.1001 #### [facility] [address] [place], [address] Nucleated RBC (Bld) [#/Vol] 0 10*3/uL Normal 0-5 [facility] Comment on above: Performed By: #### L 100.0100, L500.4050, L501.9520, L506.1001 #### [facility] [address] [place], [address] Platelet mean volume (Bld) [Entitic vol] 10.2 fL Normal 6.2-12.0 [facility] Comment on above: Performed By: #### L 100.0100, L500.4050, L501.9520, L506.1001 #### [facility] [address] [place], [address] Platelets (Bld) [#/Vol] 169 10*3/uL Normal 150-450 [facility] Comment on above: Performed By: #### L 100.0100, L500.4050, L501.9520, L506.1001 #### [facility] [address] [place], [address] RBC (Bld) [#/Vol] 3.91 10*6/uL Low 4.2-5.4 [facility] Comment on above: Performed By: #### L 100.0100, L500.4050, L501.9520, L506.1001 #### [facility] [address] [place], [address] RDW SD 57.6 fl High 35.1-43.9 [facility] Comment on above: Performed By: #### L 100.0100, L500.4050, L501.9520, L506.1001 #### [facility] [address] [place], [address] WBC (Bld) [#/Vol] 5.0 10*3/uL Normal 4.4-11.0 [facility] Comment on above: Performed By: #### L 100.0100, L500.4050, L501.9520, L506.1001 #### [facility] [address] [place], [address] Carbon dioxide, total [Moles /volume] in Central venous bloodOrdered By: Kalia Byrnes on 03-05-2025 CO2 [Moles/Vol] 25.7 mmol/L 21.0-32.0 [facility] Chloride assayOrdered By: Venita Byrnes on 03-05-2025 Chloride [Moles/Vol] 105 mmol/L 98-108 [facility] Comprehensive Metabolic Prof ilon 03-05-2025 Albumin [Mass/Vol] 4.1 g/dL Normal 3.4-4.8 [facility] Comment on above: Performed By: #### L 100.0100, L500.4050, L501.9520, L506.1001 #### [facility] [address] [place], [address] Albumin/Globulin [Mass ratio] 1.7 {ratio} Normal 0.9-2.4 [facility] Comment on above: Performed By: #### L 100.0100, L500.4050, L501.9520, L506.1001 #### [facility] [address] [place], [address] ALK PHOS 82 U/L Normal 35-104 [facility] Comment on above: Performed By: #### L 100.0100, L500.4050, L501.9520, L506.1001 #### [facility] [address] [place], [address] ALT [Catalytic activity/Vol] 10 U/L Normal <=34 [facility] Comment on above: Performed By: #### L 100.0100, L500.4050, L501.9520, L506.1001 #### [facility] [address] [place], [address] AST [Catalytic activity/Vol] 17 U/L Normal <=31 [facility] Comment on above: Performed By: #### L 100.0100, L500.4050, L501.9520, L506.1001 #### [facility] [address] [place], [address] Bilirubin [Mass/Vol] 0.42 mg/dL Normal 0.00-1.30 [facility] Comment on above: Performed By: #### L 100.0100, L500.4050, L501.9520, L506.1001 #### [facility] [address] [place], [address] BUN/CRE 40.4 RATIO High 10-20 [facility] Comment on above: Performed By: #### L 100.0100, L500.4050, L501.9520, L506.1001 #### [facility] [address] [place], [address] Calcium [Mass/Vol] 9.7 mg/dL Normal 7.6-11.0 [facility] Comment on above: Performed By: #### L 100.0100, L500.4050, L501.9520, L506.1001 #### [facility] [address] [place], [address] Chloride [Moles/Vol] 105 mmol/L Normal 98-108 [facility] Comment on above: Performed By: #### L 100.0100, L500.4050, L501.9520, L506.1001 #### [facility] [address] [place], [address] CO2 [Moles/Vol] 25.7 mmol/L Normal 21.0-32.0 [facility] Comment on above: Performed By: #### L 100.0100, L500.4050, L501.9520, L506.1001 #### [facility] [address] [place], [address] Creatinine [Mass/Vol] 0.66 mg/dL Low 0.70-1.20 [facility] Comment on above: Performed By: #### L 100.0100, L500.4050, L501.9520, L506.1001 #### [facility] [address] [place], [address] GAP 11 Normal 5-15 [facility] [facility] Comment on above: Performed By: #### L 100.0100, L500.4050, L501.9520, L506.1001 #### [facility] [address] [place], [address] GFR/1.73 sq M.predicted among non-blacks MDRD (S/P/Bld) [Vol rate/Area] 84 mL/min/{1.73_m2} Normal >60 [facility] Comment on above: Result Comment: mL/m in/1.73m2 CKD-EPI Creatinine Equation (2020) Performed By: #### L 100.0100, L500.4050, L501.9520, L506.1001 #### [facility] [address] [place], [address] Globulin (S) [Mass/Vol] 2.4 g/dL Normal 2.2-4.2 [facility] Comment on above: Performed By: #### L 100.0100, L500.4050, L501.9520, L506.1001 #### [facility] [address] [place], [address] Glucose [Mass/Vol] 102 mg/dL High 70-99 [facility] Comment on above: Performed By: #### L 100.0100, L500.4050, L501.9520, L506.1001 #### [facility] [address] [place], [address] Potassium [Moles/Vol] 3.9 mmol/L Normal 3.3-5.1 [facility] Comment on above: Performed By: #### L 100.0100, L500.4050, L501.9520, L506.1001 #### [facility] [address] [place], [address] Sodium [Moles/Vol] 142 mmol/L Normal 133-145 [facility] Comment on above: Performed By: #### L 100.0100, L500.4050, L501.9520, L506.1001 #### [facility] [address] [place], [address] T PROT 6.6 g/dL Normal 5.9-8.4 [facility] Comment on above: Performed By: #### L 100.0100, L500.4050, L501.9520, L506.1001 #### [facility] [address] [place], [address] Urea nitrogen [Mass/Vol] 27 mg/dL High 4-19 [facility] Comment on above: Performed By: #### L 100.0100, L500.4050, L501.9520, L506.1001 #### [facility] [address] [place], [address] Eosinophil percentageOrdered By: Kalia Byrnes on 03-05-2025 Eosinophils/100 WBC (Bld) 3.8 % 0-5 [facility] Erythrocyte distribution wid th ratioOrdered By: Kalia Byrnes on 03-05-2025 Erythrocyte distribution width (RBC) [Ratio] 14.6 % 11.6-14.6 [facility] Erythrocyte distribution wid th standard deviationOrdered By: Kalia Byrnes on 03-05-2025 Erythrocyte distribution width (RBC) [Ratio] 57.6 fl High 35.1-43.9 [facility] Glomerular filtration rate ( GFR) estimation/1.73 sq m using serum, plasma, or whole bOrdered By: Kalia Byrnes on 03-05-2025 GFR/1.73 sq M.predicted among non-blacks MDRD (S/P/Bld) [Vol rate/Area] 84 mL/min/{1.73_m2} >60 [facility] Comment on above: mL/min/1.73m2 CKD-EP I Creatinine Equation (2020) Hematocrit Auto (Bld) [Volum e fraction]Ordered By: Kalia Byrnes on 03-05-2025 Hematocrit (Bld) [Volume fraction] 41.9 % 37-47 [facility] Hemoglobin measurementOrdere d By: Kalia Byrnes on 03-05-2025 Hemoglobin (Bld) [Mass/Vol] 13.8 g/dL 12.0-15.0 [facility] Immature granulocytes/100 WB C Auto (Bld)Ordered By: Kalia Byrnes on 03-05-2025 Immature granulocytes/100 WBC (Bld) 0.400 % 0.0-0.9 [facility] Comment on above: IG% - Immature Granu locytes (promyelocytes, myelocytes and metamyelocytes) > 1% indicates that a LEFT SHIFT is Present. Laboratory - Chemistry and C hemistry - challengeOrdered By: Kalia Byrnes on 03-05-2025 AST [Catalytic activity/Vol] 17 U/L <32 [facility] MCV (mean corpuscular volume ) determinationOrdered By: Kalia Byrnes on 03-05-2025 MCV (RBC) [Entitic vol] 107.2 fL High 81-99 [facility] Mean corpuscular hemoglobin (MCH) determinationOrdered By: Kalia Byrnes on 03-05-2025 MCH (RBC) [Entitic mass] 35.3 pg High 27.0-32.0 [facility] Mean corpuscular hemoglobin concentration (MCHC) determinationOrdered By: Kalia Byrnes on 03-05-2025 MCHC (RBC) [Mass/Vol] 32.9 g/dL 32-36 [facility] Mean platelet volume determi nationOrdered By: Kalia Byrnes on 03-05-2025 Platelet mean volume (Bld) [Entitic vol] 10.2 fL 6.2-12.0 [facility] Monocyte percentageOrdered B y: Kalia Byrnes on 03-05-2025 Monocytes/100 WBC (Bld) 12.5 % High 0-10 [facility] Neutrophil percentageOrdered By: Kalia Byrnes on 03-05-2025 Neutrophils/100 WBC (Bld) 52.9 % 47-70 [facility] Nucleated red blood cell per centageOrdered By: Kalia Byrnes on 03-05-2025 Nucleated RBC/100 WBC (Bld) [Ratio] 0 % 0-5 [facility] Platelet countOrdered By: Venita Byrnes on 03-05-2025 Platelets (Bld) [#/Vol] 169 10*3/uL 150-450 [facility] Potassium measurement (mass/ volume)Ordered By: Kalia Byrnes on 03-05-2025 Potassium (Unsp spec) [Mass/Vol] 3.9 mmol/L 3.3-5.1 [facility] RBC Auto (Bld) [#/Vol]Ordere d By: Kalia Byrnes on 03-05-2025 RBC (Bld) [#/Vol] 3.91 10*6/uL Low 4.2-5.4 [facility] Serum creatinine measurement (mass/volume)Ordered By: Kalia Byrnes on 03-05-2025 Creatinine [Mass/Vol] 0.66 mg/dL Low 0.70-1.20 [facility] Serum globulin measurementOr dered By: Kalia Byrnes on 03-05-2025 Globulin (S) [Mass/Vol] 2.4 g/dL 2.2-4.2 [facility] Serum glucose measurement (m ass/volume)Ordered By: Kalia Byrnes on 03-05-2025 Glucose [Mass/Vol] 102 mg/dL High 70-99 [facility] Serum or plasma alanine anderson otransferase (ALT) measurementOrdered By: Kalia Byrnes on 03-05-2025 ALT [Catalytic activity/Vol] 10 U/L <35 [facility] Serum or plasma albumin marlin urement (mass/volume)Ordered By: Kalia Byrnes on 03-05-2025 Albumin [Mass/Vol] 4.1 g/dL 3.4-4.8 [facility] Serum or plasma albumin/glob ulin mass ratioOrdered By: Kalia Byrnes on 03-05-2025 Albumin/Globulin [Mass ratio] 1.7 {ratio} 0.9-2.4 [facility] Serum or plasma alkaline quinton sphatase measurementOrdered By: Kalia Byrnes on 03-05-2025 ALP [Catalytic activity/Vol] 82 U/L 35-104 [facility] Serum or plasma calcium marlin urement (mass/volume)Ordered By: Kalia Byrnes on 03-05-2025 Calcium [Mass/Vol] 9.7 mg/dL 7.6-11.0 [facility] Serum or plasma urea nitroge n measurement (mass/volume)Ordered By: Kalia Byrnes on 03-05-2025 Urea nitrogen [Mass/Vol] 27 mg/dL High 4-19 [facility] Sodium levelOrdered By: Júnior Byrnes on 03-05-2025 Sodium [Moles/Vol] 142 mmol/L 133-145 [facility] TSH DL <= 0.005 mIU/L QnOrde red By: Kalia Byrnes on 03-05-2025 TSH Qn 1.840 uIU/mL 0.300-4.200 [facility] Thyroid Stim Hormone (TSH)on 03-05-2025 TSH 1.840 uIU/mL Normal 0.300-4.200 [facility] Comment on above: Performed By: #### L 100.0100, L500.4050, L501.9520, L506.1001 #### [facility] [address] [place], [place], [address] Total proteinOrdered By: Gris Byrnes on 03-05-2025 Protein [Mass/Vol] 6.6 g/dL 5.9-8.4 [facility] Vitamin D,25 Hydroxyon 03-05 Vitamin D 25-OH 51.3 ng/mL Normal 30-100 [facility] Comment on above: Result Comment: Maria T min D Status Deficiency: <20 ng/mL (50nmol/L) Insufficiency: 20-30 ng/mL (50-75 nmol/L) Sufficiency: 30-100 ng/mL (75-250 nmol/L) Toxicity: >100 ng/mL (>250 nmol/L) Performed By: #### L 100.0100, L500.4050, L501.9520, L506.1001 #### [facility] [address] [place], [address] White blood cell (WBC) count Ordered By: Kalia Byrnes on 03-05-2025 WBC (Bld) [#/Vol] 5.0 10*3/uL 4.4-11.0 [facility] Ankle Brachial Indexon 10-23 Ankle Brachial Index [facility] [address] [place] [address] Ankle Brachial Index 10/23/24 1345 MR#: [id number] Acct: [id number] Name: RADHA WARNER Rep #: [id number] : 1935 88 From: Binu Castellano MD Attending Dr: Dr. Kalia Byrnes MD Status: REG C LI Ordering Dr: Kalia Byrnes MD Date: 10/23/24 Location: [facility] Sex: F C Admitted: Reason For Study: [...] Dictated: 10/23/24 1345 Date Transcribed: 10/23/24 1631 Celery Cutter: Signed Normal [facility] Echo Completeon 10-23-2024 Echo Complete [facility] [address] [place] [address] Echo Complete 10/23/24 1251 MR#: [id number] Acct: [id number] Name: RADHA WARNER Rep #: [id number] : 1935 88 From: Jake Carl MD Attending Dr: Dr. Kalia Byrnes MD Status: REG C Ordering Dr: Kalia Byrnes MD Date: 10/23/24 Location: [facility] Sex: F C Admitted: Reason For Study: [...] E' Waldo: 3.2 cm/sec MV A max waldo: 91.1 cm/sec E/E' lat: 6.2 E/E' med: [...] Byrnes Referring Physician: Kalia Byrnes Performed By: eMhrdad Sandoval RCS 10/23/24 1426 Date Jake Carl MD CC: Dr. Kalia Byrnes MD Date Dictated: 10/23/24 1251 Date Transcribed: 10/23/241425 Celery Cutter: Signed [facility] 12 Lead EKGon 10-10-2024 12 Lead EKG [facility] Cardiovascular Services [address] [place] [address] 12 Lead EKG 10/10/24 1211 MR#: [id number] Acct: [id number] Name: RADHA WARNER Rep #: [id number] : 1935 88 From: Lazaro Cuevas MD Attending Dr: Status: DEP ER Ordering Dr: Mike Davison MD Date: 10/10/24 [...] rhythm Normal ECG Confirmed by Lazaro Cuevas ([id number]), editor at large ADEEL WU ([id number]) on 10/11/2024 10:19:29 AM Referred By: BEATRIZ Confirmed By: Lazaro Cuevas 10/11/24 1019 Date Lazaro Cuevas MD CC: Dr. Kalia Byrnes MD; Dr. Mike Davison MD Signed Normal [facility] BNP,B-Type NATRIURETIC PEPTI Jacqueline 10-10-2024 Natriuretic peptide B (Bld) [Mass/Vol] 218.3 pg/mL High 0-100 [facility] Comment on above: Performed By: #### L 503.6620, L500.2500, L100.0100, L501.4020 ####[facility] [address] [place], [address] Basic Metabolic Profile (BMP )on 10-10-2024 BUN/CRE 35.8 RATIO High 10-20 [facility] Comment on above: Order Comment: 'TROP ' Serial specimen #1, #2 or #3: 1 Performed By: #### L 503.6620, L500.2500, L100.0100, L501.4020 ####[facility] [address] [place], [address] CA,Total 9.6 mg/dL Normal 8.5-10.1 [facility] Comment on above: Order Comment: 'TROP ' Serial specimen #1, #2 or #3: 1 Performed By: #### L 503.6620, L500.2500, L100.0100, L501.4020 ####[facility] [address] [place], [address] Chloride [Moles/Vol] 107 mmol/L Normal 98-107 [facility] Comment on above: Order Comment: 'TROP ' Serial specimen #1, #2 or #3: 1 Performed By: #### L 503.6620, L500.2500, L100.0100, L501.4020 ####[facility] [address] [place], [address] CO2 [Moles/Vol] 29.0 mmol/L Normal 21.0-32.0 [facility] Comment on above: Order Comment: 'TROP ' Serial specimen #1, #2 or #3: 1 Performed By: #### L 503.6620, L500.2500, L100.0100, L501.4020 ####[facility] [address] [place], [address] Creatinine [Mass/Vol] 0.56 mg/dL Normal 0.55-1.02 [facility] Comment on above: Order Comment: 'TROP ' Serial specimen #1, #2 or #3: 1 Result Comment: The validity of the calculated GFR GFRAA in patients over 70 years has not been determined. Clinical correlation is essential. Performed By: #### L 503.6620, L500.2500, L100.0100, L501.4020 ####[facility] [address] [place], [address] ECRCL 45.31 ml/min Normal [facility] Comment on above: Order Comment: 'TROP ' Serial specimen #1, #2 or #3: 1 Performed By: #### L 503.6620, L500.2500, L100.0100, L501.4020 ####[facility] [address] [place], [address] EST GFR - AA 131 mL/min Normal >60 [facility] Comment on above: Order Comment: 'TROP ' Serial specimen #1, #2 or #3: 1 Result Comment: Afri can Azerbaijani GFR Calc Performed By: #### L 503.6620, L500.2500, L100.0100, L501.4020 ####[facility] [address] [place], [address] GAP 6 Normal 5-15 [facility] Comment on above: Order Comment: 'TROP ' Serial specimen #1, #2 or #3: 1 Performed By: #### L 503.6620, L500.2500, L100.0100, L501.4020 ####[facility] [address] [place], [address] GFR/1.73 sq M.predicted among non-blacks MDRD (S/P/Bld) [Vol rate/Area] 109 mL/min/{1.73_m2} Normal >60 [facility] Comment on above: Order Comment: 'TROP ' Serial specimen #1, #2 or #3: 1 Result Comment: Non- GFR Calc Performed By: #### L 503.6620, L500.2500, L100.0100, L501.4020 ####[facility] [address] [place], [address] Glucose [Mass/Vol] 108 mg/dL High 74-106 [facility] Comment on above: Order Comment: 'TROP ' Serial specimen #1, #2 or #3: 1 Result Comment: Fast ing Glucose result from 100 to 125 mg/dL suggests IMPAIRED HOMEOSTASIS per A.D.A. criteria. Performed By: #### L 503.6620, L500.2500, L100.0100, L501.4020 ####[facility] [address] [place], [address] Potassium [Moles/Vol] 3.4 mmol/L Low 3.5-5.1 [facility] Comment on above: Order Comment: 'TROP ' Serial specimen #1, #2 or #3: 1 Performed By: #### L 503.6620, L500.2500, L100.0100, L501.4020 ####[facility] [address] [place], [address] Sodium [Moles/Vol] 142 mmol/L Normal 136-145 [facility] Comment on above: Order Comment: 'TROP ' Serial specimen #1, #2 or #3: 1 Performed By: #### L 503.6620, L500.2500, L100.0100, L501.4020 ####[facility] [address] [place], [address] Urea nitrogen [Mass/Vol] 20 mg/dL High 7-18 [facility] Comment on above: Order Comment: 'TROP ' Serial specimen #1, #2 or #3: 1 Performed By: #### L 503.6620, L500.2500, L100.0100, L501.4020 ####[facility] [address] [place], [address] CBC W/Diff, Automatedon 01-0 8-2024 Absolute Lymph 0.97 X10 3/uL Normal 0.83-4.51 [facility] Comment on above: Performed By: #### L 503.6620, L500.2500, L100.0100, L501.4020 ####[facility] [address] [place], [address] Absolute Neut 2.2 X10 3/uL Normal 2.0-7.7 [facility] Comment on above: Performed By: #### L 503.6620, L500.2500, L100.0100, L501.4020 ####[facility] [address] [place], [address] Basophils/100 WBC (Bld) 0.7 % Normal 0-1 [facility] Comment on above: Performed By: #### L 503.6620, L500.2500, L100.0100, L501.4020 ####[facility] [address] [place], [address] Eosinophils/100 WBC (Bld) 8.7 % High 0-5 [facility] Comment on above: Performed By: #### L 503.6620, L500.2500, L100.0100, L501.4020 ####[facility] [address] [place], [address] Erythrocyte distribution width (RBC) [Ratio] 13.8 % Normal 11.6-14.6 [facility] Comment on above: Performed By: #### L 503.6620, L500.2500, L100.0100, L501.4020 ####[facility] [address] [place], [address] Hematocrit (Bld) [Volume fraction] 39.6 % Normal 37-47 [facility] Comment on above: Performed By: #### L 503.6620, L500.2500, L100.0100, L501.4020 ####[facility] [address] [place], [address] Hemoglobin (Bld) [Mass/Vol] 12.9 g/dL Normal 12.0-15.0 [facility] Comment on above: Performed By: #### L 503.6620, L500.2500, L100.0100, L501.4020 ####[facility] [address] [place], [address] IG% 0.500 Normal 0.0-0.9 [facility] Comment on above: Result Comment: IG% - Immature Granulocytes (promyelocytes, myelocytes and metamyelocytes) > 1% indicates that a LEFT SHIFT is Present. Performed By: #### L 503.6620, L500.2500, L100.0100, L501.4020 ####[facility] [address] [place], [address] Lymphocytes/100 WBC (Bld) 22.8 % Normal 19-41 [facility] Comment on above: Performed By: #### L 503.6620, L500.2500, L100.0100, L501.4020 ####[facility] [address] [place], [address] MCH (RBC) [Entitic mass] 35.8 pg High 27.0-32.0 [facility] Comment on above: Performed By: #### L 503.6620, L500.2500, L100.0100, L501.4020 ####[facility] [address] [place], [address] MCHC (RBC) [Mass/Vol] 32.6 g/dL Normal 32-36 [facility] Comment on above: Performed By: #### L 503.6620, L500.2500, L100.0100, L501.4020 ####[facility] [address] [place], [address] MCV (RBC) [Entitic vol] 110.0 fL High 81-99 [facility] Comment on above: Performed By: #### L 503.6620, L500.2500, L100.0100, L501.4020 ####[facility] [address] [place], [address] Monocytes/100 WBC (Bld) 16.5 % High 0-10 [facility] Comment on above: Performed By: #### L 503.6620, L500.2500, L100.0100, L501.4020 ####[facility] [address] [place], [address] Neutrophils/100 WBC (Bld) 50.8 % Normal 47-70 [facility] Comment on above: Performed By: #### L 503.6620, L500.2500, L100.0100, L501.4020 ####[facility] [address] [place], [address] Nucleated RBC (Bld) [#/Vol] 0 10*3/uL Normal 0-5 [facility] Comment on above: Performed By: #### L 503.6620, L500.2500, L100.0100, L501.4020 ####[facility] [address] [place], [address] Platelet mean volume (Bld) [Entitic vol] 9.6 fL Normal 6.2-12.0 [facility] Comment on above: Performed By: #### L 503.6620, L500.2500, L100.0100, L501.4020 ####[facility] [address] [place], [address] Platelets (Bld) [#/Vol] 163 10*3/uL Normal 150-450 [facility] Comment on above: Performed By: #### L 503.6620, L500.2500, L100.0100, L501.4020 ####[facility] [address] [place], [address] RBC (Bld) [#/Vol] 3.60 10*6/uL Low 4.2-5.4 [facility] Comment on above: Performed By: #### L 503.6620, L500.2500, L100.0100, L501.4020 ####[facility] [address] [place], [address] RDW SD 57.1 fl High 35.1-43.9 [facility] Comment on above: Performed By: #### L 503.6620, L500.2500, L100.0100, L501.4020 ####[facility] [address] [place], [address] WBC (Bld) [#/Vol] 4.3 10*3/uL Low 4.4-11.0 [facility] Comment on above: Performed By: #### L 503.6620, L500.2500, L100.0100, L501.4020 ####[facility] [address] [place], [address] Chest PA and Lateralon 10-10 Chest PA and Lateral [facility] Imaging Services [address] [place] [address] Chest PA and Lateral MR#: [id number] Acct: [id number] Name: RADHA WARNER Rep #: [id number] : 1935 F 88 From: Iglesia sue MD PCP: Dr. Kalia Byrnes MD Status: [facility] ER Study: Chest PA and Lateral Date of Exam: 10/10/24 Exam# [id number] Ordering Dr: Mike Davison MD [id number] STUDY: X-RAY CHEST REASON FOR EXAM: Female, [...] Signed: Iglesia Lobo MD at 12:36 EST Reading Location ID and State: [address] [place] [address] , Service support , CC: Dr. Kalia Byrnes MD; Dr. Mike Davison MD Celery Cutter: Signed Normal [facility] Emergency Department Summary on 10-10-2024 Emergency Department Summary [facility] Medical Records Department [address] [place] [address] Emergency Department Summary 10/10/24 MR#: [id number] Acct: [id number] Name: RADHA WARNER Rep #: [id number] : 1935 88 From: Mike Davison MD [...] for Marfan's Syndrome, Hypertension or Family History [facility] Medical History Contusion of right shoulder Right [...] Effort Nor (more content not included)... Normal [facility] L501.4020on 10-10-2024 TROPONIN-I HS 14 pg/mL Normal 3.0-54.0 [facility] Comment on above: Order Comment: 'TROP ' Serial specimen #1, #2 or #3: 1 Result Comment: Natalie garay Note: New Test Units and Gender Specific Reference Ranges. For more information see Policy Stat Procedure [place] High Sensitivity Troponin (TNIH) and attachments. Performed By: #### L 503.4919, L500.2500, L100.0100, L501.4020 ####[facility] [address] [place], [address] Venous Duplex US, Unilateral on 09-21-2024 Venous Duplex US, Unilateral [facility] [address] [place] [address] Venous Duplex US, Unilateral 09/21/24 1353 MR#: [id number] Acct: [id number] Name: RADHA WARNER Rep #: [id number] : 1935 88 From: Don Tinajero MD [...] Physician: Kalia Byrnes Performed By: Katy Gonzales, RDCS, RVT 09/21/241951 Date Don Tinajero MD CC: Dr. Kalia Byrnes MD Date Dictated: 09/21/24 1353 Date Transcribed: 09/21/241951 Celery Cutter: Signed Normal [facility] CBC W/Diff, Automatedon 08-04 Anisocytosis Ql (Bld) 1+ Normal [facility] Comment on above: Order Comment: Order Date: 08/24/24 Order Info: [id number] - CBCD Performed By: #### L 506.1000, L500.4050, L501.9520, L100.0100 #### [facility] Laboratory [address] [place], [place], [address] Comprehensive Metabolic Prof ilon 08-28-2024 Albumin [Mass/Vol] 3.6 g/dL Normal 3.2-5.0 [facility] Comment on above: Order Comment: Order Date: 08/24/24 Order Info: [id number] - CMP Order Info: [id number] - TSH Performed By: #### L 506.1000, L500.4050, L501.9520, L100.0100 #### [facility] [address] [place], [place], [address] Albumin/Globulin [Mass ratio] 1.2 {ratio} Normal 0.9-2.4 [facility] Comment on above: Order Comment: Order Date: 08/24/24 Order Info: [id number] - CMP Order Info: [id number] - TSH Performed By: #### L 506.1000, L500.4050, L501.9520, L100.0100 #### [facility] [address] [place], [address] ALK P 100 U/L Normal 45-117 [facility] Comment on above: Order Comment: Order Date: 08/24/24 Order Info: [id number] - CMP Order Info: [id number] - TSH Performed By: #### L 506.1000, L500.4050, L501.9520, L100.0100 #### [facility] [address] [place], [address] ALT [Catalytic activity/Vol] 17 U/L Normal 13-56 [facility] Comment on above: Order Comment: Order Date: 08/24/24 Order Info: [id number] - CMP Order Info: 3013 - TSH Performed By: #### L 506.1000, L500.4050, L501.9520, L100.0100 #### [facility] [address] [place], [address] AST [Catalytic activity/Vol] 20 U/L Normal 15-37 [facility] Comment on above: Order Comment: Order Date: 08/24/24 Order Info: 0786- - CMP Order Info: 3016 - TSH Performed By: #### L 506.1000, L500.4050, L501.9520, L100.0100 #### [facility] [address] [place], [address] Bilirubin [Mass/Vol] 0.60 mg/dL Normal 0.20-1.00 [facility] Comment on above: Order Comment: Order Date: 08/24/24 Order Info: 0786-1 - CMP Order Info: 3016-3 - TSH Result Comment: For patients on eltrombopag therapy, use of Dimension [place] TBIL is not recommended. Performed By: #### L 506.1000, L500.4050, L501.9520, L100.0100 #### [facility] [address] [place], [address] BUN/CRE 39.3 RATIO High 10-20 [facility] Comment on above: Order Comment: Order Date: 08/24/24 Order Info: 0786- - CMP Order Info: 3 - TSH Performed By: #### L 506.1000, L500.4050, L501.9520, L100.0100 #### [facility] [address] [place], [address] CA,Total 9.2 mg/dL Normal 8.5-10.1 [facility] Comment on above: Order Comment: Order Date: 08/24/24 Order Info: 07 - CMP Order Info: 3015-12 - TSH Performed By: #### L 506.1000, L500.4050, L501.9520, L100.0100 #### [facility] [address] [place], [address] Chloride [Moles/Vol] 112 mmol/L High 98-107 [facility] Comment on above: Order Comment: Order Date: 08/24/24 Order Info: 07 - CMP Order Info: 3015-12 - TSH Performed By: #### L 506.1000, L500.4050, L501.9520, L100.0100 #### [facility] [address] [place], [address] CO2 [Moles/Vol] 29.0 mmol/L Normal 21.0-32.0 [facility] Comment on above: Order Comment: Order Date: 08/24/24 Order Info: 0786 - CMP Order Info: 3 - TSH Performed By: #### L 506.1000, L500.4050, L501.9520, L100.0100 #### [facility] [address] [place], [address] Creatinine [Mass/Vol] 0.61 mg/dL Normal 0.55-1.02 [facility] Comment on above: Order Comment: Order Date: 08/24/24 Order Info: 0786-1 - CMP Order Info: 3015-3 - TSH Result Comment: The validity of the calculated GFR GFRAA in patients over 70 years has not been determined. Clinical correlation is essential. Performed By: #### L 506.1000, L500.4050, L501.9520, L100.0100 #### [facility] [address] [place], [address] EST GFR - AA 119 mL/min Normal >60 [facility] Comment on above: Order Comment: Order Date: 08/24/24 Order Info: 0786-1 - CMP Order Info: 3016-3 - TSH Result Comment: Afri can [place] GFR Calc Performed By: #### L 506.1000, L500.4050, L501.9520, L100.0100 #### [facility] [address] [place], [address] GAP 4 Low 5-15 [facility] Comment on above: Order Comment: Order Date: 08/24/24 Order Info: 0786-1 - [facility] Order Info: 3016-3 - TSH Performed By: #### L 506.1000, L500.4050, L501.9520, L100.0100 #### [facility] [address] [place], [address] GFR/1.73 sq M.predicted among non-blacks MDRD (S/P/Bld) [Vol rate/Area] 98 mL/min/{1.73_m2} Normal >60 [facility] Comment on above: Order Comment: Order Date: 08/24/24 Order Info: 0786-1 - CMP Order Info: 3016-3 - TSH Result Comment: Non- GFR Calc Performed By: #### L 506.1000, L500.4050, L501.9520, L100.0100 #### [facility] [address] [place], [address] Globulin (S) [Mass/Vol] 3.0 g/dL Normal 2.2-4.2 [facility] Comment on above: Order Comment: Order Date: 08/24/24 Order Info: 0786- - CMP Order Info: 3015-12 - TSH Performed By: #### L 506.1000, L500.4050, L501.9520, L100.0100 #### [facility] [address] [place], [address] Glucose [Mass/Vol] 111 mg/dL High 74-106 [facility] Comment on above: Order Comment: Order Date: 08/24/24 Order Info: 07-1 - CMP Order Info: 3 - TSH Result Comment: Fast ing Glucose result from 100 to 125 mg/dL suggests IMPAIRED HOMEOSTASIS per A.D.A. criteria. Performed By: #### L 506.1000, L500.4050, L501.9520, L100.0100 #### [facility] [address] [place], [address] Potassium [Moles/Vol] 3.3 mmol/L Low 3.5-5.1 [facility] Comment on above: Order Comment: Order Date: 08/24/24 Order Info: 0786- - CMP Order Info: 3015-12 - TSH Performed By: #### L 506.1000, L500.4050, L501.9520, L100.0100 #### [facility] [address] [place], [address] Sodium [Moles/Vol] 145 mmol/L Normal 136-145 [facility] Comment on above: Order Comment: Order Date: 08/24/24 Order Info: 0786- - CMP Order Info: 3015-12 - TSH Performed By: #### L 506.1000, L500.4050, L501.9520, L100.0100 #### [facility] [address] [place], [address] T PROT 6.6 g/dL Normal 6.4-8.2 [facility] Comment on above: Order Comment: Order Date: 08/24/24 Order Info: 0786-1 - CMP Order Info: 3015-12 - TSH Performed By: #### L 506.1000, L500.4050, L501.9520, L100.0100 #### [facility] [address] [place], [place], [address] Urea nitrogen [Mass/Vol] 24 mg/dL High 7-18 [facility] Comment on above: Order Comment: Order Date: 08/24/24 Order Info: 0786-1 - CMP Order Info: 3016-3 - TSH Performed By: #### L 506.1000, L500.4050, L501.9520, L100.0100 #### [facility] [address] [place], [address] Thyroid Stim Hormone (TSH)on 08-28-2024 TSH 1.170 uIU/mL Normal 0.358-3.740 [facility] Comment on above: Order Comment: Order Date: 08/24/24Order Info: 0786-1 - CMPOrder Info: 3016-3 - TSH Performed By: #### L 506.1000, L500.4050, L501.9520, L100.0100 ####[facility] [id number] [place], [place], [id number] Vitamin D,25 Hydroxyon 08-28 Vitamin D 25-OH 31.8 ng/mL Normal [facility] Comment on above: Order Comment: Order Date: 08/24/24 Order Info: 90445-4 - VITD25 Result Comment: Maria T min D 25(OH) Status Range Deficiency <20 ng/mL (50nmol/L) Insufficiency 20 - 30 ng/mL (50 - 75 nmol/L) Sufficiency 30 - 100 ng/mL (75 - 250 nmol/L) Toxicity >100 ng/mL (>250 nmol/L) Performed By: #### L 506.1000, L500.4050, L501.9520, L100.0100 #### [facility] [address] [place], [place], [address] Vital Signs Date Time Vital Sign Value Performing Clinician Kristin castillo 06-18-2025 13:57-0400 Body height 160.02 cm Kalia Byrnes MD Work Phone: [facility] 06-18-2025 13:57-0400 Body mass index (BMI) [Ratio] 24 kg/m2 Kalia Byrnes MD Work Phone: [facility] 06-18-2025 13:57-0400 Body weight 61.68 kg Kalia Byrnes MD Work Phone: [facility] 06-18-2025 13:57-0400 Diastolic blood pressure 88 mm[Hg] Kalia Byrnes MD Work Phone: [facility] 06-18-2025 13:57-0400 Heart rate 82 /min Kalia Byrnes MD Work Phone: [facility] 06-18-2025 13:57-0400 Systolic blood pressure 130 mm[Hg] Kalia Byrnes MD Work Phone: [facility] 05-08-2025 11:14-0400 Body height 160.02 cm Kalia Byrnes MD Work Phone: [facility] 05-08-2025 11:14-0400 Body mass index (BMI) [Ratio] 24 kg/m2 Kalia Byrnes MD Work Phone: [facility] 05-08-2025 11:14-0400 Body weight 61.68 kg Kalia Byrnes MD Work Phone: [facility] 05-08-2025 11:14-0400 Diastolic blood pressure 83 mm[Hg] Kalia Byrnes MD Work Phone: [facility] 05-08-2025 11:14-0400 Heart rate 66 /min Kalia Byrnes MD Work Phone: [facility] 05-08-2025 11:14-0400 Respiratory rate 16 /min Kalia Byrnes MD Work Phone: [facility] 05-08-2025 11:14-0400 Systolic blood pressure 152 mm[Hg] Kalia Byrnes MD Work Phone: [facility] Encounters Encounter Date Encounter Type Care Provider Facility Start: 08-02-2025 ambulatory Sri Barnes Facility: [facility] Start: 06-18-2025 End: 06-18-[address] Sri Barnes MD -[facility] Work Phone: Start: 06-18-2025 End: 06-18-2025 ambulatory Kalia Byrnes MD Work Phone: -[facility] Start: 06-11-2025 End: 06-11-2025 ambulatory Kalia Byrnes MD Work Phone: -[facility] Services/Neurology Start: 06-11-2025 End: 06-11-[address] Jake Carl MD -[facility] Work Phone: Start: 06-11-2025 End: 06-11-2025 ambulatory Jake Carl Facility:[facility] Start: 05-08-2025 End: 05-08-[address] Jake Carl MD -[facility] Work Phone: Start: 05-08-2025 End: 05-08-2025 ambulatory Kalia Byrnes MD Work Phone: -[facility] Start: 04-02-2025 Non-patient / Non-visit Dr. Sri olson MD -[facility] Work Phone: Start: 03-05-2025 End: 03-05-2025 ambulatory Kalia Byrnes MD Work Phone: [facility] Work Phone: Start: 03-05-2025 End: 03-05-[address] Kalia Byrnes MD -[facility] Start: 03-05-2025 End: 03-05-2025 ambulatory Kalia Byrnes Facility:[facility] Start: 11-20-2024 ambulatory Yessy Rose Facility:[facility] Start: 10-23-2024 ambulatory Kalia Fitz Facility:[facility] Start: 10-23-2024 End: 10-23-2024 ambulatory Chalon Fitz Facility:[facility] Start: 10-10-2024 End: 10-10-2024 Emergency department patient visit Kalia Byrnes Facility:[facility] Start: 09-21-2024 End: 09-21-2024 ambulatory [facility] Facility:[facility] Start: 08-28-2024 End: 08-28-2024 ambulatory [facility] Facility:[facility] Procedures Date Procedure Procedure Detail Performing Clinician Start: 03-05-2025 Vitamin D, 25-hydrox y measurement Kalia Byrnes MD Work Phone: Comment on above: Vitamin D StatusDefi ciency: <20 ng/mL (50nmol/L)Insufficiency: 20-30 ng/mL (50-75 nmol/L)Sufficiency: 30-100 ng/mL (75-250 nmol/L)Toxicity: >100 ng/mL (>250 nmol/L) Plan of Treatment Date Care Activity Detail Author Start: 05-08-2025 End: 05-08-2025 Evaluation of diagnostic study results [facility] Payers Date Payer Category Payer Medicare [id number] 2024 Self-pay 2024 Unknown [id number] Medicare [id number] Private Health Insurance [id number] Unknown Unknown [id number] 2.16.8 [id number] Unknown [id number] 2.16.8 [id number] Unknown [id number] 2.16.8 [id number] Unknown [id number] 2.16.8 [id number] Unknown [id number] 2.16.8 [id number] Unknown [id number] 2.16.8 [id number] Unknown [id number] 2.16.8 [id number] Unknown [id number] 2.16.8 [id number] Unknown [id number] 2.16.8 [id number] Unknown [id number] 2.16.8 [id number] Unknown [id number] 2.16.8 [id number] Unknown [id number] 2.16.8 [id number] Social History Date Type Detail Facility Start: 10-10-2024 End: 04-22-2025 Tobacco smoking status NHIS Never smoked tobacco (finding) [facility] Start: 1935 Sex Assigned At Female [facility] Sex Female [facility] Evaluation note 05-08-2025 Note Date & Type Note Facility 05-08-2025 Evaluation note Diagnosis Onset Date Resolution Dizziness acute May 08 10:59am Hypertension chronic May 08, 2025 10:59am [facility] Work Phone: Evaluation note 05-08-2025 Note Date & Type Note Facility 05-08-2025 Evaluation note Diagnosis Onset Date Resolution Dizziness acute May 08 10:59am Hypertension chronic May 08, 2025 10:59am Nocturia acute June 1:35pm Overactive bladder acute Septem walt 2024 1:35pm Urge incontinence acute Septemb er 2024 1:35pm Hypertension chronic June 182024 1:35pm [facility] Work Phone: Evaluation note Note Date & Type Note Facility Evaluation note No assessment information availa ble [facility] Work Phone: Reason for referral (narrative) Note Date & Type Note Facility Reason for referral (narrative) No reason for referral information available [facility] Work Phone: Family History No Family History Records Found Relationship Condition Age at Onset Recorded Date/T stephanie grandmother Malignant neoplasm of breast Unknown mother Malignant neoplasm Unknown Chief Complaint and Reason for Visit Chief Complaint Admit Date ABN EKG (FITZ) May 08, 2025 10: 59am Chief Complaint Admit Date ABN EKG (FITZ) May 08, 2025 10: 59am DIZZINESS June 11, 2025 11:52am 3m med f/u June 18, 2025 1:35pm Reason for Visit Admit Date Dizziness May 08, 2025 10: 59am Hypertension May 08, 2025 10: 59am Reason for Visit Admit Date Dizziness May 08, 2025 10: 59am Hypertension May 08, 2025 10: 59am Nocturia June 18, 2025 1:35pm Overactive bladder June 18, 2025 1:35pm Urge incontinence June 18, 2025 1:35pm Hypertension June 18, 2025 1:35pm Summary Purpose Advance Directives No Advanced Directives [...] May 08, 2025 End: May 08, 2025 Team Status: Active Member Role/Relationship Status Christo Byrnes MD Primary Care Provider Active St art: June 11, 2025 Dr. Jake Carl MD Attending Provider Active S tart: June 11, 2025 Dr. Jake Carl MD Referring Provider Active S tart: June 11, 2025 Team Status: Inactive Member Role/Relationship Status Christo Byrnes MD Primary Care Provider Active St art: June 18, 2025 End: June 18, 2025 Kalia Byrnes MD Referring Provider Active Start : June 18, 2025 End: June 18, 2025 Dr. Sri Barnes MD Attending Provider Active Start: June 18, 2025 End: June 18, 2025 Team Status: Active Member Role/Relationship Status Christo Byrnes MD Primary care physician Active Team Status: Inactive Member Role/Relationship Status Christo Byrnes MD Primary care physician Active S tart: March 05, 2025 End: March 05, 2025 Kalia Byrnes MD Attending physician Active Star t: March 05, 2025 End: March 05, 2025 Kalia Byrnes MD Referring Provider Active Start : March 05, 2025 End: March 05, 2025 Team Status: Inactive Member Role/Relationship Status Christo Byrnes MD Primary care physician Active S tart: April 02, 2025 Dr. Sri Barnes MD Attending physician Active Start: April 02, 2025 Team Status: Inactive Member Role/Relationship Status Christo Byrnes MD Primary care physician Active S tart: May 08, 2025 End: May 08, 2025 Kalia Byrnes MD Referring Provider Active Start : May 08, 2025 End: May 08, 2025 Dr. Jake Carl MD Attending physician Active Start: May 08, 2025 End: May 08, 2025 Team Status: Inactive Member Role/Relationship Status Christo Byrnes , MD Primary care physician Active S tart: June 11, 2025 End: June 11, 2025 Dr. Jake Carl MD Attending physician Active Start: June 11, 2025 End: June 11, 2025 Dr. Jake Carl MD Referring Provider Active S tart: June 11, 2025 End: June 11, 2025 Team Status: Inactive Member Role/Relationship Status Dates Kalia Byrnes MD Primary care physician Active S tart: June 18, 2025 End: June 18, 2025 Kalia Byrnes MD Referring Provider Active Start : June 18, 2025 End: June 18, 2025 Dr. Sri Barnes MD Attending physician Active Start: June 18, 2025 End: June 18, 2025 Goals (unrecognized section and content) Goals may be documented in a n alternate sectionGoals may be documented in an alternate sectionGoals may be documented in an alternate sectionGoals may be documented in an alternate section INFORMATION SOURCE (unrecogn ized section and content) DATE CREATED AUTHOR 08/10/2025 [facility] FOR RECORDS PERTAINING TO PATIENTS WHO ARE [...] BE BASED ON THE PRIMARY CLINICAL RECORDS. [employer] provides no warranty or guarantee of the accuracy or completeness of information in this document.
[2025-09-06 15:00] LABS: Hematocrit 40.6 % (37-47); Hemoglobin 13.1 g/dL (12.0-15.0); Immature Granulocytes Count 0.010 X10^3/uL (0.0-0.0); Mean Corp Hgb Conc 32.3 g/dL (32-36); Mean Corpuscular Volume 108.0 fL (81-99); Mean Platelet Vol. 10.6 fl (6.2-12.0); NRBC Flagged by Analyzer 0 % (0-5); Platelet Count 174 K/mm3 (150-450); RBC Distribution Width CV 15.1 % (11.6-14.6); RBC Distribution Width SD 59.9 fl (35.1-43.9); Red Blood Count 3.76 M/mm3 (4.2-5.4); White Blood Count 4.4 K/mm3 (4.4-11.0)
[2025-09-06 15:31] LABS: AST(SGOT) 17 U/L (<=31); Alanine Aminotransfer ALT/SGPT 13 U/L (<=34); Albumin, Serum 4.0 g/dL (3.4-4.8); Alkaline Phosphatase 63 U/L (35-104); Anion Gap 9 (5-15); BUN 27 mg/dL (4-19); BUN/Creat Ratio 36.0 RATIO (10-20); Calcium,Total 9.5 mg/dL (7.6-11.0); Carbon Dioxide 26.7 mmol/L (21.0-32.0); Chloride 108 mmol/L (98-108); Follicle Stimulating Hormone 41.8 mIU/mL; Globulin 2.2 g/dL (2.2-4.2); Glucose 103 mg/dL (70-99); Potassium 3.8 mmol/L (3.3-5.1); Vitamin D,25 Hydroxy 34.8 ng/mL (30-100)
[2025-09-08 07:07] LABS: PROGESTERONE 0.3 ng/mL (.)
[2025-09-10 16:09] LABS: Estrogen, Total, Serum 70 pg/mL (40-244)
== END | disposition home or self-care (01) ==
LOC: MFPLAB 11:59
PROVIDERS: PCP Family Medicine; Visit Provider Family Medicine
DX: I10 Essential (primary) hypertension (principal); R23.2 Flushing; M79.10 Myalgia, unspecified site
CPT/HCPCS: 36415; 80053; 82306; 82672; 83001; 83002; 84144; 84443; 85025